=== PATIENT | male | born 1960 | race Caucasian/White ===

== ENCOUNTER 2017-02-06 19:12 | Emergency (ER) | payer BC | END 2017-02-06 21:00 | disposition home or self-care (01) | LOC: D.ER 19:12 | DX: G89.18 Other acute postprocedural pain (principal); L76.22 Postprocedural hemorrhage of skin and subcutaneous tissue following other procedure; F17.200 Nicotine dependence, unspecified, uncomplicated ==

== ENCOUNTER 2017-02-09 14:19 | Emergency (ER) | payer BC | END 2017-02-09 15:16 | disposition home or self-care (01) | LOC: D.ER 14:19 | DX: G89.18 Other acute postprocedural pain (principal); F17.200 Nicotine dependence, unspecified, uncomplicated ==

== ENCOUNTER 2017-02-22 00:57 | Emergency (ER) | payer BC | END 2017-02-22 02:04 | disposition home or self-care (01) | LOC: D.ER 00:57 | DX: M54.5 Low back pain (principal); M62.838 Other muscle spasm; F17.200 Nicotine dependence, unspecified, uncomplicated ==

== ENCOUNTER 2018-02-22 05:04 | Outpatient (CLI) | payer OTHER ==
[~2018-02-22] VITALS: Ht 167.6 cm; Wt 60.6 kg
--- NOTE | ~2018-02-22 | HEMODYNAMI ---
PATIENT:ANDREW SANCHES MEDICAL RECORD: [id number] : 60 LOCATION:D. D.2117 ADMISSION DATE: 02/22/18 Generatedon:02/22/201811:08 Patient name: ANDREW SANCHES Patient #: [id number] SSN: D OB: 1960 Date of study: 02/22/2018 Page: Of Hemodynamic Procedure Report Patient Data Patient Demographics Procedure consent was obtained First Name: ANDREW Gender: Male Last Name: MYRON : 1960 Middle Initial: ANNA MARIE Age: 57 year(s) Patient #: [id number] Race: Unknown Additional ID: [id number] Contact details [address]: [address] [place] [address] State: [place] City: [place] Zip code: [address] Past Medical History Allergies: No known allergies Admission Admission Data Admission Date: 02/22/2018 Admission Time: 6:39 Room #: 2117 Procedure Procedure Types Cath Procedure Diagnostic Procedure [facility] w/Coronaries PCI Procedure Coronary Stent Coronary Stent Initial Procedure Description Procedure Date Procedure Date: 02/22/2018 Procedure Start Time: 10:41 Procedure End Time: 11:07 Procedure Staff Name Function Sun Coker RT Monitor Marlene Buchanan RT Scrub Anatoly Goss RN Nurse Tex Garcia MD Performing Physician Cassius Damon RT Monitor Procedure Data Cath Procedure Fluoroscopy Diagnostic fluoroscopy Total fluoroscopy Time: 5.7 time: 5.7 min min Diagnostic fluoroscopy Total fluoroscopy dose: 839 dose: 839 mGy mGy Contrast Material Contrast Material Type Amount (ml) Isovue 300 121 Entry Location Entry Primary Successful Side Size Upsize Upsize Entry Closure Muse ccessful Closure Location (Fr) 1 (Fr) 2 (Fr) Remarks Device Remarks Radial Right 6 Fr Mechanical artery Short Compression Estimated blood loss: 10 ml Diagnostic catheters Device Type Used For End Catheter Placement DIAGNOSTIC Francisco 110cm Procedure 5Fr catheter ([id number]) DIAGNOSTIC Pigtail 5Fr Procedure catheter ([id number]) Procedure Medications Medication Administration Route Dosage Oxygen NC 2 l/min Heparin Flush Bag added to field 2 bags (1000units/500ml NS) 0.9% NaCl I.V. 100 ml/hr Radial Cocktail added to field 1 syringe (Verapomil 2mg/Nitro 400mcg/Heparin 1500units) Fentanyl I.V. 50 mcg Versed I.V. 1 mg Fentanyl I.V. 50 mcg Versed I.V. 1 mg Radial Cocktail I.A. 1 syringe (Verapomil 2mg/Nitro 400mcg/Heparin 1500units) Fentanyl I.V. 50 mcg Heparin Bolus I.V. 7000 units Brilinta P.O. 180 mg Hemodynamics Rest Heart Rate: 47 (bpm) Pressure Samples Time Site Value (mmHg) Purpose Heart Use Rate(bpm) 10:44 LV 127/-14,1 Snapshot 52 10:45 AO 83/47(63) Pullback 52 10:45 LV 123/-15,0 Pullback 52 Gradients Valve Time Site 1 Site 2 Mean SEP/DFP Peak To Heart Use (mmHg) (sec/min) Peak Rate (mmHg) (bpm) Aortic 10:45 LV AO 31 17 40 52 123/-15,0 83/47(63) Calculations Valve P-P Mean Valve Index Valve Source Name Gradient Area Flow (cm2) Aortic 40 31 40 31 Snapshots Pre Cath Intra NCS Post Cath Vital Signs Time Heart Resp SPO2 NIBP (mmHg) Rhythm Pain Sedation Rate (ipm) (%) Status Level (bpm) 10:26:24 47 17 98 137/79(94) NSR 0 (11) 10(A) , No pain 10:30:38 51 17 98 124/71(98) NSR 0 (11) 10(A) , No pain 10:34:46 56 15 98 127/71(100) NSR 0 (11) 10(A) , No pain 10:38:54 52 16 97 126/73(91) NSR 0 (11) 9(A) , No pain 10:43:01 49 17 99 112/66(84) NSR 0 (11) 9(A) , No pain 10:47:09 52 16 98 103/58(77) NSR 0 (11) 9(A) , No pain 10:51:13 51 17 98 115/60(86) NSR 0 (11) 9(A) , No pain 10:55:19 48 17 98 116/63(93) NSR 0 (11) 9(A) , No pain 10:59:27 51 17 98 112/61(87) NSR 0 (11) 9(A) , No pain 11:03:32 52 16 99 102/64(79) NSR 0 (11) 9(A) , No pain Medications Time Medication Route Dose Verified Delivered Reason Note s Effectiveness by by 10:26:58 Oxygen NC 2 l/min Tex Anatoly Per physician Jose Goss RN 10:27:09 Heparin Flush added 2 bags Tex Anatoly used for Bag to Jose Goss RN procedure (1000units/500ml field NS) 10:27:18 0.9% NaCl I.V. 100 Tex Anatoly Per physician ml/hr Jose Goss RN 10:27:26 Radial Cocktail added 1 Tex Anatoly used for (Verapomil to syringe Jose Goss RN procedure 2mg/Nitro field 400mcg/Heparin 1500units) 10:36:30 Fentanyl I.V. 50 mcg Tex Anatoly for sedation Jose Goss RN 10:36:36 Versed I.V. 1 mg Tex Anatoly for sedation Jose Goss RN 10:38:58 Fentanyl I.V. 50 mcg Tex Anatoly for sedation Jose Goss RN 10:39:03 Versed I.V. 1 mg Tex Anatoly for sedation Jose Goss RN 10:44:10 Radial Cocktail I.A. 1 Tex Tex for (Verapomil syringe Jose Garcia MD vasodilation 2mg/Nitro 400mcg/Heparin 1500units) 10:44:17 Fentanyl I.V. 50 mcg Tex Anatoly for sedation Jose Goss RN 10:53:54 Heparin Bolus I.V. 7000 Tex Anatoly for units Jose Goss RN anticoagulation 11:05:18 Brilinta P.O. 180 mg Tex Anatoly for Jose Goss RN antiplatelet therapy Procedure Log Time Note 10:18:59 Polo Romo RT(R) sent for patient. Start room use. 10:19:00 Time tracking: Regular hours 10:19:05 Plan of Care:Hemodynamics will remain stable., Cardiac rhythm will remain stable., Comfort level will be maintained., Respiratory function will remain adequate., Patient/ family verbilizes understanding of procedure., Procedure tolerated without complication., Recovers from procedure without complications.. 10:19:13 Patient received from Med II to CCL 2 Alert and oriented. Tansferred to table in Supine position. 10:19:15 Warm blankets applied, and ej hugger turned on for patient comfort. 10:19:15 Correct patient and procedure confirmed by team. 10:19:17 Signed procedure consent form obtained from patient. 10:19:18 ECG and BP/O2 sat monitors applied to patient. 10:25:16 Vital chart was started 10:26:08 Baseline sample Acquired. 10:26:12 Rhythm: sinus rhythm 10::18 Full Disclosure recording started 10:26:25 H&P Date Dictated: 02/21/2018 Within 30 days and on chart.. 10:26:26 Pre-procedure instructions explained to patient. 10:26:29 Family unavailable. 10:26:31 Patient NPO since Midnight. 10:26:36 Patient allergic to No known allergies 10:26:40 Is the patient allergic to Iodine/contrast media? No. 10:26:42 Was the patient premedicated? Yes 10:26:44 Is patient on blood thinner?No 10:26:46 Patient diabetic? No. 10:26:50 Snore? Yes 10:26:51 Sleep apnea? No 10:26:58 Oxygen 2 l/min NC was administered by Anatoly Goss RN; Per physician; 10:27:00 Patient pain scale 2/10 ?. 10:27:05 IV patent on arrival in left forearm with 0.9% NaCl at [facility]. 10:27:09 Heparin Flush Bag (1000units/500ml NS) 2 bags added to field was administered by Anatoly Goss RN; used for procedure; 10:27:11 Lab results completed and on chart. 10:27:16 Right Radial & Right Groin area was prepped with chlora-prep and draped in sterile fashion 10:27:17 Alarms reviewed by R. N. 10:27:18 0.9% NaCl 100 ml/hr I.V. was administered by Anatoly Goss RN; Per physician; 10::18 Sharps counted by scrub and verified by RAgnieszkaNAgnieszka 10:27:20 Physician paged 10:27:26 Radial Cocktail (Verapomil 2mg/Nitro 400mcg/Heparin 1500units) 1 syringe added to field was administered by Anatoly Goss RN; used for procedure; 10:36:14 Physician arrived 10:36:15 --------ALL STOP TIME OUT------ 10:36:15 Final Timeout: patient, procedure, and site verified with staff and physician. All members of the team are in agreement. 10:36:21 Right Radial & Right Groin site verified by team. 10:36:25 Physical assessment completed. ASA score P 2 - A patient with mild systemic disease as per Tex Garcia MD. 10:36:30 Fentanyl 50 mcg I.V. was administered by Anatoly Goss RN; for sedation; 10:36:30 Sedation plan: IV Moderate Sedation Medication:Versed, Fentanyl 10:36:36 Versed 1 mg I.V. was administered by Anatoly Goss RN; for sedation; 10:37:00 Use device set Radial Dx or PCI 10:37:03 ACIST Syringe (50037) opened to sterile field. 10:37:04 Medline Cath Pack ([id number]) opened to sterile field. 10:37:06 Bag Decanter (2002) opened to sterile field. 10:37:10 DIAGNOSTIC WIRE .035 260cm J wire (374857) opened to sterile field. 10:37:11 ACIST Hand Control (50954) opened to sterile field. 10:37:12 ACIST Manifold (99492) opened to sterile field. 10:37:13 Tegaderm 4 x 4 (1626W) opened to sterile field. 10:37:15 MBrace Wrist Support ([id number]) opened to sterile field. 10:38:16 SHEATH 6Fr Prelude Radial ([id number]) opened to sterile field. 10:38:58 Fentanyl 50 mcg I.V. was administered by Anatoly Goss RN; for sedation; 10:39:03 Versed 1 mg I.V. was administered by Anatoly Goss RN; for sedation; 10:39:28 Procedure started. 10:41:00 Local anesthetic to right radial artery with Lidocaine 2% by Tex Garcia MD.INITIAL ACCESS ONLY 10:42:56 A 6 Fr Short sheath was inserted into the Right Radial artery 10:43:27 A DIAGNOSTIC Francisco 110cm 5Fr catheter (892713) was advanced over the wire and used for Procedure. 10:43:36 Zero performed for pressure channel P1 10:43:40 Zero performed for pressure channel P1 10:43:42 Zero performed for pressure channel P1 10:44:10 Radial Cocktail (Verapomil 2mg/Nitro 400mcg/Heparin 1500units) 1 syringe I.A. was administered by Tex Garcia MD; for vasodilation; 10:44:17 Fentanyl 50 mcg I.V. was administered by Anatoly Goss RN; for sedation; 10:45:28 LV hemodynamics recorded. 10:45:31 LV gram done using MACHADO 10:45:37 EF : 50 % 10:46:51 LCA angiography performed. 10:48:12 RCA angiography performed. 10:49:08 Catheter removed. 10:49:09 A DIAGNOSTIC Pigtail 5Fr catheter (370507M) was advanced over the wire and used for Procedure. 10:50:10 Injector settings: Ml/sec: 10, Volume: 20, 10:50:19 Aortic Root visualized 10:50:44 Catheter removed. 10:51:23 GUIDE 6FR XBLAD 3.5 catheter ([id number]) opened to sterile field. 10:51:24 TUBING High Pressure Extension Tubing (Jose) ([id number]) opened to sterile field. 10:51:25 BMW 300cm [place] 2 J wire ([id number]) opened to sterile field. 10:51:27 INFLATOR Merit BasixCompak (NY3861) opened to sterile field. 10:51:33 Proceeding to intervention. 10:53:00 6 Fr XBLAD 3.5 guide catheter was inserted over the wire 10:53:54 Heparin Bolus 7000 units I.V. was administered by Anatoly Goss RN; for anticoagulation; 10:55:09 BMW wire advanced. 10:55:36 Wire advanced across lesion. 10:58:36 Place stent Inflation Number: 1 A INTEGRITY OTW 3.0 X 18 stent ([id number]) was prepped and advanced across the Prox LAD. The stent was deployed at 14 BRYCE for 0:16 (min:sec). 10:59:17 Stent catheter was removed intact over wire. 10:59:18 Wire removed. 10:59:19 Guide catheter removed. 10:59:52 TR BAND Standard ([id number]) opened to sterile field. 11:03:31 Sheath removed intact; hemostasis achieved with Mechanical Compression to the Right Radial artery. 11:03:34 Procedure ended.(Physican Out) 11:03:45 Fluoroscopy time 05.70 minutes. 11:03:54 Fluoroscopy dose: 839 mGy 11:03:54 Flurop Dose total: 839 11:03:59 Contrast amount:Isovue 300 121ml. 11:04:01 Sharps counted by scrub and verified by R.N. 11:04:04 TR band inflated with 10cc of air. 11:04:06 Insertion/operative site no bleeding no hematoma. 11:04:13 Post right radial artery:stable 11:04:21 Post-procedure physical assessment completed. ASA score P 2 - A patient with mild systemic disease as per Tex Garcia MD. 11:04:33 Post procedure rhythm: sinus bradycardia 11:04:36 Estimated blood loss: 10 ml 11:04:38 Post procedure instruction explained to patient.Patient verbalizes understanding. 11:04:38 Patient needs reinforcement of post procedure teaching. 11:04:58 Procedure type changed to Cath procedure, Diagnostic procedure, LHC, LHC w/Coronaries, PCI procedure, Coronary Stent, Coronary Stent Initial 11:05:18 Brilinta 180 mg P.O. was administered by Anatoly Goss RN; for antiplatelet therapy; 11:05:24 Procedure and supply charges have been captured, reviewed, submitted and are correct. 11:05:26 Vital chart was stopped 11:05:27 See physician's report for complete and final results. 11:07:24 Report given to Med II. 11:07:31 Patient transfered to [facility] II with Bed. 11:07:34 Procedure ended. 11:07:34 Full Disclosure recording stopped 11:07:39 End room use (Document Last) Intervention Summary Intervention Notes Time ActionType Lesion and Equipment Action# Pressure Duration Attributes Used 10:58:36 Place stent Prox LAD INTEGRITY 1 14 00:16 OTW 3.0 X 18 stent ([id number]) Device Usage Item Name Manufacture Quantity Catalog Number Hospital Part Current M inimal Lot# / Charge Number Stock Stock Serial# Code ACIST Syringe Acist 1 39707 417409 998432 112325 2 0 (53244) Medical Systems Inc Medline Cath Cardinal 1 [id number] 641248 40492 430738 5 Pack Health ([id number]) Bag Decanter Microtek 1 2001S 520063 54496 813392 5 (2001S) Medical Inc. DIAGNOSTIC WIRE [place] 1 381846 410257 662919 712509 3 0 .035 260cm J wire (829401) ACIST Hand Acist 1 53977 835321 545194 065733 5 Control (97583) Medical Systems Inc ACIST Manifold Acist 1 06923 826946 315763 649172 5 (14684) Medical Systems Inc Tegaderm 4 x 4 3M 1 1626W 932537 863167 441973 5 (1626W) MBrace Wrist Advanced 1 140-0250-00 401633 61635 458739 5 Support Vascular (159565728) Dynamics SHEATH 6Fr Merit 1 [id number] 420942 804780 771492 5 Prelude Radial Medical ([id number]) DIAGNOSTIC Terumo 1 405023 370478 412309 129180 5 Francisco 110cm 5Fr catheter (733470) DIAGNOSTIC Cardinal 1 [id number] 572585 786434 738780 5 Pigtail 5Fr Health catheter (508406V) GUIDE 6FR XBLAD Cardinal 1 [id number] 136801 432378 765869 1 0 3.5 catheter Health (12042235) TUBING High Merit 1 ON0025S 384251 64156 371251 1 0 Pressure Medical Extension Tubing (Garcia) (EE7488P) BMW 300cm Dawson 1 [id number] 503632 830111 288813 5 [place] 2 J Vascular wire (7413820Q) INFLATOR Merit Merit 1 HV4676 392151 223448 784246 1 5 avolution Medical (PA7374) INTEGRITY OTW Medtronic 1 [id number] 650686 040343 3 [id number] 3.0 X 18 stent ([id number]) TR BAND Terumo 1 [id number] 246563 343947 828640 4 0 Standard (NEM28TBA) Signature Audit Post Stage Time Signature Unsigned Intra-Procedure 02/22/2018 Cassius Damon 11:08:23 AM RT(R) (CV) Signatures Monitor : Sun Coker Signature : RT Date : Time : Monitor : Cassius Damon RT Signature : Date : Time : [place] [address] [place] [address]
[2018-02-22 05:37] LABS: BASOPHILS 0.3 % (0-2); EOSINOPHILS 1.6 % (0-7); HEMATOCRIT 40.2 % (42.0-54.0); LYMPHOCYTES 27.9 % (15-50); MCH 30.2 pg (26.0-34.0); MCHC 34.8 g/dL (31.0-37.0); MCV 86.6 fL (80.0-100.0); MEAN PLATELET VOLUME 10.2 fL (7.4-10.4); MONOCYTES 7.9 % (2-11); NEUTROPHILS 62.3 % (40-80); PLATELET COUNT 209 10x3/uL (130-400); RBC 4.64 10x6/uL (4.20-6.10); RDW 13.7 % (11.5-14.5); WBC 7.6 10x3/uL (4.8-10.8)
[2018-02-22 05:50] LABS: ALBUMIN 3.3 g/dL (3.4-5.0); ALKALINE PHOSPHATASE 92 U/L (46-116); ALT (SGPT) 22 U/L (10-68); BILIRUBIN - TOTAL 0.21 mg/dL (0.2-1.3); CALC OSMOLALITY 281 mosm/kg (275-300); CALCIUM 8.6 mg/dL (8.5-10.1); CARBON DIOXIDE 26.2 mmol/L (21.0-32.0); CHLORIDE - SERUM 106 mmol/L (98-107); CREATININE - SERUM 0.7 mg/dL (0.6-1.3); GLUCOSE 95 mg/dL (74-106); POTASSIUM - SERUM 3.2 mmol/L (3.5-5.1); PROTEIN - SERUM 6.7 g/dL (6.4-8.2); SODIUM 142 mmol/L (136-145); UREA NITROGEN 10 mg/dL (7-18); eGFR NON AFRICAN AMERICAN > 90 mL/min (90-120)
[2018-02-22 06:01] LABS: CREATINE KINASE 113 UL (21-232); MAGNESIUM - SERUM 1.8 mg/dL (1.8-2.4); PRO BNP 48 pg/mL (0-125)
[2018-02-22 06:02] LABS: TROPONIN-I < 0.017 ng/mL (0.000-0.060)
[2018-02-22 07:41] VITALS: BP 122/75; BMI 24.2
[2018-02-22 08:24] VITALS: BP 111/68
[2018-02-22 13:42] VITALS: Ht 167.6 cm; Wt 60.6 kg
[2018-02-22 15:07] VITALS: BP 95/63
[2018-02-22 20:00] VITALS: BP 89/50
[2018-02-23 00:49] VITALS: BP 107/60
[2018-02-23 06:46] VITALS: BP 103/63
[2018-02-23 07:44] VITALS: BP 101/55
[2018-02-23] MEDS ORDERED: NICODERM C1 PATCH .1 TRANSDERM (10:34)
[2018-02-23] MEDS ORDERED: BRILINTA90 MG PO (10:34)
[2018-02-23] MEDS ORDERED: PROTONIX40 MG PO (10:35)
[2018-02-23 11:23] VITALS: BP 94/51
== END 2018-02-23 14:30 | disposition home or self-care (01) ==
LOC: OBSVTIME → D.ER 05:04 → OBSVTIME 06:39 → D.ER 06:39 → D.M2 06:39 → EDSTATUS 11:00 → D.ER 02-23 14:30 → D.M2 02-23 14:30
PROVIDERS: Emergency Medicine
DX: I20.0 Unstable angina (principal); F17.203 Nicotine dependence unspecified, with withdrawal; E87.6 Hypokalemia; Z01.812 Encounter for preprocedural laboratory examination

== ENCOUNTER 2018-10-04 09:02 | Emergency (ER) | payer OTHER ==
[~2018-10-04] VITALS: Ht 167.6 cm; Wt 68.2 kg
[~2018-10-04 09:02] MED LIST: BRILINTA90 MG PO; NICODERM C1 PATCH .1 TRANSDERM; PROTONIX40 MG PO
[2018-10-04 09:06] VITALS: Ht 167.6 cm; Wt 68.2 kg
[2018-10-04] MEDS ORDERED: NORCO 7.5/325 T1 TA1 PO (09:23)
[2018-10-04 10:06] VITALS: BP 124/68
== END 2018-10-04 10:13 | disposition home or self-care (01) ==
LOC: D.ER 09:02
DX: M25.511 Pain in right shoulder (principal); G40.909 Epilepsy, unspecified, not intractable, without status epilepticus

== ENCOUNTER 2019-02-20 22:56 | Inpatient (IN) | payer OTHER ==
[~2019-02-20] VITALS: Ht 167.6 cm; Wt 65.9 kg
[~2019-02-20 22:56] MED LIST changes: +NORCO 7.5/325 T1 TA1 PO
--- NOTE | 2019-02-20 23:15 | NUR ---
PT PROVIDED WARM BLANKETS FOR COMFORT.
[2019-02-20 23:22] LABS: APPEARANCE CLEAR (CLEAR); BILIRUBIN NEGATIVE (NEGATIVE); COLOR YELLOW (YELLOW); GLUCOSE NEGATIVE (NEGATIVE); KETONE NEGATIVE (NEGATIVE); NITRITE NEGATIVE (NEGATIVE); PROTEIN NEGATIVE (NEGATIVE); UROBILINOGEN NORMAL (NORMAL)
[2019-02-20 23:30] VITALS: BP 113/61
[2019-02-21] VITALS (9 sets, daily range): BP systolic 91–137; BP diastolic 41–77; Ht 167.6 cm; Wt 65.9 kg
[2019-02-21 00:04] LABS: BASOPHILS 0.4 % (0-2); EOSINOPHILS 2.6 % (0-7); HEMATOCRIT 39.9 % (42.0-54.0); HEMOGLOBIN 13.8 g/dL (13.5-17.5); IMMATURE GRANULOCYTES 0.1 % (0-5); LYMPHOCYTES 29.8 % (15-50); MCHC 34.6 g/dL (31.0-37.0); MCV 86.7 fL (80.0-100.0); MEAN PLATELET VOLUME 10.1 fL (7.4-10.4); MONOCYTES 6.8 % (2-11); NEUTROPHILS 60.3 % (40-80); PLATELET COUNT 214 10x3/uL (130-400); RDW 14.1 % (11.5-14.5); WBC 6.9 10x3/uL (4.8-10.8)
[2019-02-21 00:16] LABS: ALBUMIN 3.1 g/dL (3.4-5.0); ALKALINE PHOSPHATASE 86 U/L (46-116); ALT (SGPT) 24 U/L (10-68); BILIRUBIN - TOTAL 0.22 mg/dL (0.2-1.3); CALC OSMOLALITY 279 mosm/kg (275-300); CARBON DIOXIDE 28.1 mmol/L (21.0-32.0); CHLORIDE - SERUM 104 mmol/L (98-107); CREATININE - SERUM 0.8 mg/dL (0.6-1.3); GLUCOSE 94 mg/dL (74-106); POTASSIUM - SERUM 3.7 mmol/L (3.5-5.1); PROTEIN - SERUM 6.3 g/dL (6.4-8.2); SODIUM 141 mmol/L (136-145); UREA NITROGEN 11 mg/dL (7-18); eGFR NON AFRICAN AMERICAN > 90 mL/min (90-120)
--- NOTE | 2019-02-21 00:38 | NUR ---
PT RETURNED FROM CT VIA STRETCHER. PT DENIES NEEDS AT THIS TIME.
--- NOTE | 2019-02-21 01:30 | NUR ---
PT UPDATED ON PLAN OF CARE. NO S/S OF ACUTE DISTRESS NOTED AT THIS TIME. PT FAMILY AT BEDSIDE.
--- NOTE | 2019-02-21 03:19 | NUR ---
RN DISCUSSED BENEFITS OF NG TUBE PLACEMENT DUE TO SBO, PT REFUSES NG TUBE.
--- NOTE | 2019-02-21 04:00 | NUR ---
RECEIVED PT VIA W/C FROM ER WITH C/O LOWER ABD PAIN. REPORTS LAST BM 2 DAYS AGO. REFUSES NGT PLACEMENT. PT ASKING FOR FOOD. INFORMED THAT HE IS NPO. HE VERBALIZED UNDERSTANDING. ALERT AND ORIENTED X4. RESP EVEN AND NONLABORED. BBS CTA. ABD SOFT, TENDER IN LOWER QUADS. REPORTS PAIN 6. NO N/V. ENTIRE BODY IS COVERED IN RAISED MOLES. NS @ 125 ML/HR INFUSING IN LT AC WITHOUT DIFF. AMBULATORY. NO EDEMA NOTED. NO ACUTE DISTRESS. SR ELEVATED X2. CL IN REACH.
--- NOTE | 2019-02-21 07:08 | NUR ---
PT IS RESTING IN BED WITH EYES CLOSED. RESPIRATIONS ARE EVEN AND UNLABORED. PT IS EASILY AROUSED WITH VERBAL STIMULATION. PT REPORTS PAIN IN LOWER ABDOMEN 8/10 DESCRIBED CRAMPING. PT EDUCATED ON NPO STATUS. PT VERBALIZES UNDERSTANDING. BED IS IN THE LOWEST POSITION. CALL LIGHT AND BEDSIDE TABLE ARE WITHIN REACH. WILL ADDRESS PAIN. WILL CONT TO MONITOR.
--- NOTE | 2019-02-21 07:12 | NUR ---
PT IS REFUSING PAIN MEDICATION. PT EDUCATED ON AVAILABILITY AND TYPE OF MEDICAITON, PT STATES "I DON'T WANT IT. I WILL JUST SUFFER". WILL CONT TO MONITOR.
--- NOTE | 2019-02-21 11:00 | NUR ---
PT REPORTS LARGE SIZE BOWEL MOVEMENT.
[2019-02-21 11:57] LABS: BASOPHILS 0.3 % (0-2); EOSINOPHILS 3.9 % (0-7); HEMATOCRIT 40.4 % (42.0-54.0); IMMATURE GRANULOCYTES 0.2 % (0-5); LYMPHOCYTES 33.1 % (15-50); MCHC 34.7 g/dL (31.0-37.0); MCV 86.5 fL (80.0-100.0); MEAN PLATELET VOLUME 10.2 fL (7.4-10.4); MONOCYTES 9.3 % (2-11); NEUTROPHILS 53.2 % (40-80); PLATELET COUNT 230 10x3/uL (130-400); RBC 4.67 10x6/uL (4.20-6.10); RDW 14.1 % (11.5-14.5); WBC 6.4 10x3/uL (4.8-10.8)
[2019-02-21 12:12] LABS: CALC OSMOLALITY 278 mosm/kg (275-300); CALCIUM 8.1 mg/dL (8.5-10.1); CARBON DIOXIDE 26.2 mmol/L (21.0-32.0); CHLORIDE - SERUM 107 mmol/L (98-107); CREATININE - SERUM 0.8 mg/dL (0.6-1.3); GLUCOSE 92 mg/dL (74-106); POTASSIUM - SERUM 3.8 mmol/L (3.5-5.1); SODIUM 140 mmol/L (136-145); UREA NITROGEN 12 mg/dL (7-18); eGFR NON AFRICAN AMERICAN > 90 mL/min (90-120)
--- NOTE | 2019-02-21 21:48 | NUR ---
PT ALERT X 4. BREATH SOUNDS CLEAR BILAT. IV TO LEFT AC, PATENT, DRESSING CLEAN DRY AND INTACT. PT REPORTING NO PAIN AT THIS TIME. BED LOW, CALL LIGHT IN REACH. NO OTHER NEEDS AT THIS TIME.
--- NOTE | 2019-02-22 01:36 | NUR ---
PT REQUESTING ICE CREAM AND ICE WATER. SITTING UP IN BED.
[2019-02-22 04:00] VITALS: BP 121/64
[2019-02-22 06:14] LABS: BASOPHILS 0.5 % (0-2); EOSINOPHILS 3.1 % (0-7); HEMATOCRIT 40.5 % (42.0-54.0); HEMOGLOBIN 13.5 g/dL (13.5-17.5); IMMATURE GRANULOCYTES 0.2 % (0-5); MCH 29.3 pg (26.0-34.0); MCHC 33.3 g/dL (31.0-37.0); MEAN PLATELET VOLUME 10.9 fL (7.4-10.4); MONOCYTES 8.5 % (2-11); NEUTROPHILS 54.7 % (40-80); PLATELET COUNT 240 10x3/uL (130-400); RDW 14.1 % (11.5-14.5); WBC 6.1 10x3/uL (4.8-10.8)
[2019-02-22 07:19] LABS: CALC OSMOLALITY 279 mosm/kg (275-300); CALCIUM 7.9 mg/dL (8.5-10.1); CHLORIDE - SERUM 110 mmol/L (98-107); CREATININE - SERUM 0.7 mg/dL (0.6-1.3); GLUCOSE 73 mg/dL (74-106); POTASSIUM - SERUM 3.8 mmol/L (3.5-5.1); SODIUM 142 mmol/L (136-145); eGFR NON AFRICAN AMERICAN > 90 mL/min (90-120)
[2019-02-22 07:20] LABS: UREA NITROGEN 8 mg/dL (7-18)
--- NOTE | 2019-02-22 08:00 | NUR ---
PT RESTING IN BED. NO ACUTE DISTRESS NOTED AT THIS TIME. RESP EVEN AND UNLABORED. REPORTS "LIQUID STOOL" THIS AM. QUESTIONS WHEN WILL BE DISCHARGED HOME. INSTRUCTED PT NO ORDERS FOR D/C AT THIS TIME. DENIES PAIN AT THIS TIME. IV TO LEFT AC WITH NS @ 125ML/HR INFUSING VIA PUMP. SITE WITHOUT REDNESS OR EDEMA. DENIES FURTHER NEEDS AT THIS TIME. CL WITHIN REACH. ENCOURAGED TO CALL WITH NEEDS. CONTINUE POC
[2019-02-22 08:27] VITALS: BP 129/67
[2019-02-22] MEDS ORDERED: MIRALAX17 GM PO (10:53)
--- NOTE | 2019-02-22 12:00 | NUR ---
PT IV D/C'D FROM LEFT AC FOR DISCHARGE HOME. CATH INTACT. DISCHARGE INSTRUCTIONS GIVEN WITH FOLLOW UP APPOINTMENT WITH DR. BLACKMAN. DENIES FURTHER QUESTIONS AT THIS TIME. TAKEN OUT WITH ALL PERSONAL POSESSIONS VIA W/C TO PRIVATE VEHICLE.
--- NOTE | 2019-02-22 13:13 | EC ---
PATIENT:ANDREW SANCHES DATE OF SERVICE: 02/21/19 SEX: M MEDICAL RECORD: [id number] DATE OF : 60 LOCATION:D.[facility] [place] AGE OF PATIENT: 58 ADMISSION DATE: 02/21/19 REFERRING PHYSICIAN: INTERPRETING PHYSICIAN: STELLA RUBALCAVA MD ECHOCARDIOGRAM REPORT ECHO CHARGES 4 ECHO COMPLETE Date: 02/21/19 CLINICAL DIAGNOSIS: ECHOCARDIOGRAPHIC MEASUREMENTS (adult normal given) AC root (d.<3.7cm) 2.2 cm LV Septum d (<1.2 cm> 1.1 cm Valve Excursion 1.2 cm LV Septum (systole) 1.3 cm Left Atria (s.<4.0cm> 3.6 cm LVPW d(<1.2cm) 0.7 cm RV (d.<2.3cm) 3.4 cm LVPW (sytole) 1.0 cm LV diastole(<5.6CM) 5.3 cm MV E-F(>70mm/sec) cm LV systole 4.9 cm LVOT Diameter 1.8 cm MV exc.(>10mm) cm Est.ejection fraction (50-75%) % DOPPLER: LVIT cm/sec A 80 cm/sec E 93 cm/sec LA cm/sec RVSP 22.9 mmHg LVOT 111 cm/sec AOP1/2T m/s Asc. Ao 360 cm/sec RVOT 80 cm/sec RA cm/sec PA 121 cm/sec AV Gradient Peak 51.8 mmHg AV Mean 36.6 mmHg AV Area 0.9 cm MV Gradient Peak 3.4 mmHg MV Mean 1.3 mmHg MV Area cm COMMENTS: Slackman: Radha CRAMER GRATZ Faculty Dean: 3 Dr. Cabral TAPE# PACS Pericardial Effusion N DATE OF SERVICE: 02/21/2019 Adequate 2-D, color-flow and spectral Doppler, and M-mode. Borderline LVH. LV internal dimension is normal. Wall motion is normal. EF is greater than or equal to 55%. Aortic valve is calcified with restriction of leaflet motion with peak gradient of 51 mmHg, putting this in moderate range. Difficult to fully exclude aortic valve vegetation due to underlying calcifications. Left atrium is normal. Mitral valve shows no prolapse. Trace MR. Right-sided chambers are grossly normal. Trace TR. ECHOCARDIOGRAM REPORT [id number] ANDREW SANCHES TRANSINT:[id number] Voice Confirmation ID: [id number] DOCUMENT ID: [id number] STELLA RUBALCAVA MD at 1313 CC: [id number] DICTATION DATE: 02/21/19 1218 SHOPPING CENTRE MANAGER: 02/21/19 1356 DIS IN 02/22/19 [place] [id number] [place] [id number]
== END 2019-02-22 12:08 | disposition home or self-care (01) | DRG 389 ==
LOC: D.ER 22:56 → D.MS 02-21 02:27
PROVIDERS: Family Medicine; Internal Medicine Nephrology; ADMIT Family Medicine; ATTEND Family Medicine
DX: K56.609 Unspecified intestinal obstruction, unspecified as to partial versus complete obstruction (principal); F17.203 Nicotine dependence unspecified, with withdrawal; R00.1 Bradycardia, unspecified; I25.10 Atherosclerotic heart disease of native coronary artery without angina pectoris; K21.9 Gastro-esophageal reflux disease without esophagitis

== ENCOUNTER 2019-06-22 01:54 | Emergency (ER) | payer OTHER ==
[~2019-06-22] VITALS: Ht 167.6 cm; Wt 70.5 kg
[~2019-06-22 01:54] MED LIST changes: +MIRALAX17 GM PO
[2019-06-22 01:57] VITALS: Ht 167.6 cm; Wt 70.5 kg
[2019-06-22 03:17] VITALS: BP 141/83
== END 2019-06-22 03:18 | disposition home or self-care (01) ==
LOC: D.ER 01:54
DX: S40.011A Contusion of right shoulder, initial encounter (principal); W20.8XXA Other cause of strike by thrown, projected or falling object, initial encounter; Y93.89 Activity, other specified; Y92.89 Other specified places as the place of occurrence of the external cause

== ENCOUNTER 2020-06-19 07:10 | Outpatient (CLI) | payer OTHER ==
[~2020-06-19] VITALS: Ht 167.6 cm; Wt 67.3 kg
--- NOTE | ~2020-06-19 | HEMODYNAMI ---
PATIENT:ANDREW SANCHES MEDICAL RECORD: [id number] : 60 LOCATION:[facility] ADMISSION DATE: 06/19/20 Generatedon:06/19/202010:56 Patient name: ANDREW SANCHES Patient #: [id number] SSN: [id number] : 1960 Date of study: 06/19/2020 Page: Of Hemodynamic Procedure Report Patient Data Patient Demographics Procedure consent was obtained First Name: ANDREW Gender: Male Last Name: MYRON : 1960 Middle Initial: ANNA MARIE Age: 59 year(s) Patient #: [id number] Race: SSN: [id number] Additional ID: [id number] Contact details [address]: [address] [place] [address] State: [place] City: [place] Zip code: [address] Past Medical History Allergies: No known allergies Admission Admission Data Admission Date: 06/19/2020 Admission Time: 7:10 Arrival Date: 06/19/2020 Arrival Time: 0:00 Insurance Payor: Private health insurance Height (in.): 66.14 BSA: 1.76 (m2) Height (cm.): 168 BMI: 23.74 (kg/m2) Weight (lbs.): 147.71 Weight (kg.): 67 Lab Results Lab Result Date: 06/19/2020 Lab Result Time: 0:00 Biochemistry Name Units Result Min Max BUN mg/dl 14 --(--*-)-- 7 18 Creatinine mg/dl 0.9 --(-*--)-- 0.6 1.3 eGFR ml/min 90 --(*---)-- 90 120 NONAFRICAN CBC Name Units Result Min Max Hematocrit % 45.6 --(-*--)-- 42 54 Hemoglobin g/dl 15.2 --(-*--)-- 13.5 17.5 Procedure Procedure Types Cath Procedure Diagnostic Procedure C Coronaries only Sedation Charges Moderate Sedation up to 15 minutes Procedure Description Procedure Date Procedure Date: 06/19/2020 Procedure Start Time: 10:41 Procedure End Time: 10:54 Procedure Staff Name Function Tex Garcia MD Performing Physician Marlene Buchanan RT Monitor Lillian Freitas RN Nurse Denise Berman RT Scrub Leslee Shepherd RN Sales Product Specialist Indication Dyspnea Procedure Data Cath Procedure Fluoroscopy Diagnostic fluoroscopy Total fluoroscopy Time: 2.3 time: 2.3 min min Diagnostic fluoroscopy Total fluoroscopy dose: 499 dose: 499 mGy mGy Contrast Material Contrast Material Type Amount (ml) Isovue 300 62 Entry Location Entry Primary Successful Side Size Upsize Upsize Entry Closure Muse ccessful Closure Location (Fr) 1 (Fr) 2 (Fr) Remarks Device Remarks Radial Right 6 Fr Mechanical artery Short Compression Estimated blood loss: 5 ml Diagnostic catheters Device Type Used For End Catheter Placement DIAGNOSTIC Francisco 110cm Ventriculography 5Fr catheter ([id number]) DIAGNOSTIC Pigtail 5Fr Aortic Root catheter ([id number]) Angiography Procedure Complications No complications Procedure Medications Medication Administration Route Dosage Oxygen etCO2 Nasal cannula 2 l/min Lidocaine 2% added to field 20 Heparin Flush Bag added to field 2 bags (1000units/500ml NS) 0.9% NaCl I.V. 100 ml/hr Versed I.V. 2 mg Fentanyl I.V. 50 mcg Versed I.V. 1 mg Fentanyl I.V. 50 mcg Versed I.V. 1 mg Radial Cocktail I.A. 1 syringe (Verapamil 2mg/Nitro 400mcg/Heparin 1500units) Hemodynamics Rest BSA: 1.76 (m2) HGB: 15.2 (g/dl) O2 Consumption: Estimated: 193.09 (ml/min) O2 Co nsumption indexed: Estimated:109.71 (ml/min/m) Heart Rate: 49 (bpm) Snapshots Pre Cath Intra NCS Post Cath Vital Signs Time Heart Resp SPO2 etCO2 NIBP (mmHg) Rhythm Pain Sedation Rate (ipm) (%) (mmHg) Status Level (bpm) 10:21:42 48 18 99 0 122/69(100) NSR 0 (11) 10(A) , No pain 10:25:25 49 15 99 33.8 119/67(94) NSR 0 (11) 10(A) , No pain 10:34:06 48 14 98 27.7 113/68(94) NSR 0 (11) 10(A) , No pain 10:39:27 48 16 98 20.3 Disturbed NSR 0 (11) 10(A) , No pain 10:43:14 50 16 97 28.5 114/64(82) NSR 0 (11) 9(A) , No pain 10:47:06 50 15 96 7.5 101/52(68) NSR 0 (11) 9(A) , No pain 10:50:59 48 16 95 0 85/46(64) NSR 0 (11) 9(A) , No pain 10:53:41 44 14 96 35.3 104/41(69) NSR 0 (11) 10(A) , No pain Medications Time Medication Route Dose Verified Delivered Reason Notes Effectiveness by by 10:28:09 Oxygen etCO2 2 l/min Tex Buffie used for Nasal Jose Shepherd RN procedure cannula 10:28:29 Lidocaine 2% added 20ml Tex Tex for local to vial Jose Garcia MD anesthetic field 10:28:35 Heparin Flush added 2 bags Tex Tex used for Bag to Jose Garcia MD procedure (1000units/500ml field NS) 10:28:47 0.9% NaCl I.V. 100 Tex Buffie used for ml/hr Jose Shepherd RN procedure 10:30:16 Versed I.V. 2 mg Tex Buffie for sedation Jose Shpeherd RN 10:30:22 Fentanyl I.V. 50 mcg Tex Buffie for sedation Jose Shepherd RN 10:42:37 Versed I.V. 1 mg Tex Buffie for sedation Jose Shepherd RN 10:42:41 Fentanyl I.V. 50 mcg Tex Buffie for sedation Jose Shepherd RN 10:43:03 Radial Cocktail I.A. 1 Tex Tex for (Verapamil syringe Jose Garcia MD vasodilation 2mg/Nitro 400mcg/Heparin 1500units) 10:46:26 Versed I.V. 1 mg Tex Buffie for sedation Jose Shepherd RN Procedure Log Time Note 9:19:37 Informed consent obtained and on chart 9:21:03 Indication : Dyspnea 9:21:15 Time tracking: Regular hours (M-F 7:00 - 5:00) 9:21:22 Procedure Status Elective Heart Cath (OP). 9:42:23 Lab Result : BUN 14 mg/dl 9::23 Lab Result : Hemoglobin 15.2 g/dl 9:: Lab Result : Hematocrit 45.6 % 9:42:23 Lab Result : Creatinine 0.9 mg/dl 9:42:23 Lab Result : eGFR NONAFRICAN 90 ml/min 9:42:46 Patient Height : 66.14 inches 9:42:52 Patient Weight : 147.71 lbs 9:42:57 Arrival Date: 06/19/2020 12:00:00 AM 9:44:17 Insurance Payor : Private health insurance 9:48:45 Risk of Mortality: 0.1 9:48:49 Risk of blood transfusion: 0.1 9:48:53 Risk of SAMARA: 0.6 10:20:01 Denise Berman RT(R) (CV) sent for patient. Start room use. 10:20:29 Plan of Care:Hemodynamics will remain stable., Cardiac rhythm will remain stable., Comfort level will be maintained., Respiratory function will remain adequate., Patient/ family verbilizes understanding of procedure., Procedure tolerated without complication., Recovers from procedure without complications.. 10:20:37 Patient received from Pre/Post Procedure Room to CCL 2 Alert and oriented. Tansferred to table in Supine position. 10:20:39 Warm blankets applied, and ej hugger turned on for patient comfort. 10:20:39 Correct patient and procedure confirmed by team. 10:20:41 ECG and BP/O2 sat monitors applied to patient. 10:20:42 Vital chart was started 10:20:47 Baseline sample Acquired. 10:21:12 Rhythm: sinus rhythm 10:21:14 Full Disclosure recording started 10:28:09 Oxygen 2 l/min etCO2 Nasal cannula was administered by Leslee Shepherd RN; used for procedure; Verbal order read back and verified. 10:28:20 H&P Date Dictated: 06/11/2020 Within 30 days and on chart., H&P Addendum completed by physician on day of procedure. (MUST COMPLETE FOR ALL OUTPATIENTS). 10:28:22 Pre-procedure instructions explained to patient. 10:28:25 Family in waiting room. 10:28:27 Patient NPO since Midnight. 10:28:29 Lidocaine 2% 20ml vial added to field was administered by Tex Garcia MD; for local anesthetic; Verbal order read back and verified. 10:28:34 Patient allergic to No known allergies 10:28:35 Heparin Flush Bag (1000units/500ml NS) 2 bags added to field was administered by Tex Garcia MD; used for procedure; Verbal order read back and verified. 10:28:38 Is the patient allergic to Iodine/contrast media? No. 10:28:40 Was the patient premedicated? Yes 10:28:41 Is patient on blood thinner?No 10:28:43 Patient diabetic? No. 10:28:47 0.9% NaCl 100 ml/hr I.V. was administered by Leslee Shepherd RN; used for procedure; Verbal order read back and verified. 10::47 Snore? No 10::48 Sleep apnea? No 10::54 Dentures? No ? 10:29:02 Patient pain scale 4/10 ?. 10:29:10 IV patent on arrival in right forearm with 0.9% NaCl at [facility]. 10:29:13 Lab results completed and on chart. 10:29:36 Stress Test: no; N/A ? 10:29:50 Right Radial & Right Groin area was prepped with chlora-prep and draped in sterile fashion 10::51 Alarms reviewed by R. N. 10::52 Sharps counted by scrub and verified by R.N. 10:29:53 Physician paged 10:29:55 Physician arrived 10:29:56 --------ALL STOP TIME OUT------ 10::57 Final Timeout: patient, procedure, and site verified with staff and physician. All members of the team are in agreement. 10:30:16 Versed 2 mg I.V. was administered by Leslee Shepherd RN; for sedation; Verbal order read back and verified. 10:30:22 Fentanyl 50 mcg I.V. was administered by Leslee Shepherd RN; for sedation; Verbal order read back and verified. 10:33:07 Zero performed for pressure channel P1 10:34:14 Right Radial & Right Groin site verified by team. 10:34:17 Fire Safety Assessment: A--An alcohol-based skin anteseptic being used preoperatively., C--Open oxygen or nitrous oxide is being used., D--An ESU, laser, or fiber-optic light is being used. 10:34:23 Physical assessment completed. ASA score P 2 - A patient with mild systemic disease as per Tex Garcia MD. 10:34:30 1) 90+ Normal kidney functon but urine findings or structural abnormalities or genetic trait point to kidney disease. 10:34:34 Maximum allowable contrast dose (3.7 X eGFR X 0.75)250 ml. 10:34:38 Sedation plan: IV Moderate Sedation Medication:Versed, Fentanyl 10:34:45 Use device set Radial Dx or PCI 10:34:46 ACIST Syringe (53569) opened to sterile field. 10:34:46 Medline Cath Pack ([id number]) opened to sterile field. 10:34:47 Bag Decanter (2002S) opened to sterile field. 10:34:47 ACIST Hand Control (62753) opened to sterile field. 10:34:48 ACIST Manifold (44877) opened to sterile field. 10:34:50 MBrace Wrist Support ([id number]) opened to sterile field. 10:34:53 EMERALD Guide Wire (440-050) opened to sterile field. 10:34:54 SHEATH 6FR RAIN (2000773) opened to sterile field. 10:36:58 Zero performed for pressure channel P1 10:39:27 Procedure started. 10:41:14 Local anesthetic to right radial artery with Lidocaine 2% by Tex Garcia MD.INITIAL ACCESS ONLY 10:41:25 A 6 Fr Short sheath was inserted into the Right Radial artery 10:42:25 NEEDLE Cook 21G 4cm Radial ([id number]) opened to sterile field. 10:42:37 Versed 1 mg I.V. was administered by Leslee Shepherd RN; for sedation; Verbal order read back and verified. 10:42:41 Fentanyl 50 mcg I.V. was administered by Leslee Shepherd RN; for sedation; Verbal order read back and verified. 10:43:03 Radial Cocktail (Verapamil 2mg/Nitro 400mcg/Heparin 1500units) 1 syringe I.A. was administered by Tex Garcia MD; for vasodilation; Verbal order read back and verified. 10:44:09 A DIAGNOSTIC Francisco 110cm 5Fr catheter (930125) was advanced over the wire and used for Ventriculography. 10:46:24 LCA angiography performed. 10:46:26 Versed 1 mg I.V. was administered by Leslee Shepherd RN; for sedation; Verbal order read back and verified. 10:47:11 RCA angiography performed. 10:48:08 Catheter removed. 10:48:46 A DIAGNOSTIC Pigtail 5Fr catheter ([id number]) was advanced over the wire and used for Aortic Root Angiography. 10:48:57 ZEPHYR REGULAR TR BAND (606595) opened to sterile field. 10:49:20 Aortic Root visualized 10:51:12 Sheath removed intact; hemostasis achieved with Mechanical Compression to the Right Radial artery. 10:51:45 Procedure ended.(Physican Out) 10:52:03 Fluoroscopy time 02.30 minutes. 10:52:06 Fluoroscopy dose: 499 mGy 10:52:06 Flurop Dose total: 499 10:52:11 Dose Area Product 47352 mGy/cm. 10:52:17 Contrast amount:Isovue 300 62ml. 10:52:20 Maximum allowable dose exceeded? No. 10:52:21 Sharps counted by scrub and verified by R.N. 10:52:29 United band inflated with 10cc of air. 10:52:31 Insertion/operative site no bleeding no hematoma. 10:52:38 Post-op/insertion site Right Radial artery dressed using a 4 x 4 and Tegaderm. 10:52:43 Post Procedure Pulses reassessed and unchanged 10:52:49 Post-procedure physical assessment completed. ASA score P 2 - A patient with mild systemic disease as per Tex Garcia MD. 10:52:52 Post procedure rhythm: unchanged. 10:52:55 Estimated blood loss: 5 ml 10:53:04 Post procedure instruction explained to patient.Patient verbalizes understanding. 10:53:15 Patient needs reinforcement of post procedure teaching. 10:53:53 Procedure type changed to Cath procedure, Diagnostic procedure, LHC, Coronaries only, Sedation Charges, Moderate Sedation up to 15 minutes 10:53:55 Procedure and supply charges have been captured, reviewed, submitted and are correct. 10:54:36 Procedure Complication : No complications 10:54:38 Vital chart was stopped 10:54:39 [facility] Findings: mild to moderate CAD (<70%) 10:54:43 Operative report dictated upon procedure completion. 10:54:43 See physician's report for complete and final results. 10:54:45 Report given to Pre/Post Procedure Room. 10:54:48 Patient transfered to Pre/Post Procedure Room with Stretcher. 10:54:50 Procedure ended. 10:54:50 Full Disclosure recording stopped Device Usage Item Name Manufacture Quantity Catalog Hospital Part Current Minima l Lot# / Number Charge Number Stock Stock Serial# Code ACIST Acist 1 96137 [id number] 288486 189467 20 Syringe Medical (08361) Systems Inc Medline Medline 1 [id number] 700247 03286 874112 5 Cath Pack ([id number]) Bag Microtek 1 2001S 499800 82155 305833 5 Decanter Medical Inc. () ACIST Hand Acist 1 78707 588634 866296 410669 5 Control Medical (43787) Systems Inc ACIST Acist 1 10723 096737 289431 889383 5 Manifold Medical (28464) Systems Inc MBrace Advanced 1 140-0250-00 641829 24364 923500 5 Wrist Vascular Support Dynamics ([id number]) EMERALD Cardinal 1 502-455 414020 328277 868252 5 Guide Wire Health (502455) SHEATH 6FR Cardinal 1 9211643 780270 0312016 133361 5 RAIN Health (3567461) NEEDLE Cook Cook Medical 1 [id number] 090383 228461 108948 5 21G 4cm Radial (V15201) DIAGNOSTIC Terumo 1 405023 699315 721981 440694 5 Francisco 110cm 5Fr catheter (890348) DIAGNOSTIC Cardinal 1 [id number] 290659 237458 298847 5 Pigtail 5Fr Health catheter (133140Q) ZEPHYR Cardinal 1 058408 247594 1144771 531976 5 REGULAR TR Health BAND (344836) Signature Audit Callands Stage Time Signature Unsigned Intra-Procedure 06/19/2020 Marlene Buchanan 10:55:10 AM RT(R); Leslee Shepherd RN; Tex Garcia MD Signatures Performing Physician : Signature : Tex Garcia MD Date : Time : Monitor : Marlene Dewayne Signature : RT Date : Time : Nurse : Lillian Fortino RN Signature : Date : Time : [address] [place] [address]
[2020-06-19] MEDS ORDERED: TERBINAFINE HC250 MG PO (08:25)
[2020-06-19 08:33] VITALS: BP 135/70; Ht 167.6 cm; Wt 67.3 kg
[2020-06-19 08:48] LABS: BASOPHILS 0.3 % (0-2); EOSINOPHILS 1.9 % (0-7); HEMATOCRIT 45.6 % (42.0-54.0); HEMOGLOBIN 15.2 g/dL (13.5-17.5); IMMATURE GRANULOCYTES 0.4 % (0-5); LYMPHOCYTES 22.5 % (15-50); MCH 29.4 pg (26.0-34.0); MCHC 33.3 g/dL (31.0-37.0); MCV 88.2 fL (80.0-100.0); MEAN PLATELET VOLUME 10.4 fL (7.4-10.4); MONOCYTES 7.4 % (2-11); NEUTROPHILS 67.5 % (40-80); PLATELET COUNT 251 10x3/uL (130-400); RBC 5.17 10x6/uL (4.20-6.10); WBC 7.5 10x3/uL (4.8-10.8)
[2020-06-19 09:07] LABS: ALT (SGPT) 31 U/L (10-68); CALC OSMOLALITY 281 mosm/kg (275-300); CALCIUM 9.6 mg/dL (8.5-10.1); CHLORIDE - SERUM 106 mmol/L (98-107); CHOL - HDL RATIO 6.5 ratio (2.3-4.9); CHOLESTEROL, TOTAL 278 mg/dL (0-200); CREATININE - SERUM 0.9 mg/dL (0.6-1.3); GLUCOSE 103 mg/dL (74-106); HDL CHOLESTEROL 43 mg/dL (32-96); LDL CHOLESTEROL 213 mg/dL (0-100); POTASSIUM - SERUM 3.9 mmol/L (3.5-5.1); SODIUM 141 mmol/L (136-145); TRIGLYCERIDE 112 mg/dL (30-200); UREA NITROGEN 14 mg/dL (7-18); eGFR NON AFRICAN AMERICAN > 90 mL/min (90-120)
--- NOTE | 2020-06-19 11:05 | NUR ---
PT RECEIVED VIA STRETCHER FROM DIRECTOR OF ACCOUNTING FOR RECOVERY. PT SLEEPING, VERBALLY AROUSALBE. PT DENIES PAIN OR DISCOMFORT. IV PATENT INFUSING VIA R ARM PER ORDERS. PT PLACED ON CARDIAC MONITORS AND O2 VIA NC AT 2L. HR SB RATE 45, BP 109/59, RR 13, SAT 99. ZYPHER BAND AND IMMOBILIZER TO R WRIST/ARM. ARM PINK AND WARM. CAP REFILL UNABLE TO OBTAIN DUE TO THICKEN NAILS.. NO BLEEDING OR S/S HEMATOMA NOTED. CALL LIGHT IN REACH, FRIEND AT BS
--- NOTE | 2020-06-19 11:30 | NUR ---
PT RESTING COMFORTABLY. ZBAND AND IMMOBILIZER IN PLACE. NO BLEEDING OR S/S HEMATOMA NOTED. VSS AT PRESENT. CALL LIGHT IN REACH.
--- NOTE | 2020-06-19 12:12 | NUR ---
5CC AIR REMOVED FROM Z BAND, NO BLEEDING NOTED. ZBAND AND IMMOBILIZER REMAIN IN PLACE. VSS. HOB ELEVATED, SANDWICH AND DRINK SERVED. O2 REMOVED , SAT 99 ON ROOM AIR. CALL LIGHT IN REACH. PT DENIES PAIN OR NEEDS AT THIS TIME.
--- NOTE | 2020-06-19 12:27 | NUR ---
PT C/O R UPPER ARM HURTING, IV INFILTRATED, FLUIDS STOPPED. WARM COMPRESS APPLIED. WILL REMOVE IV.
--- NOTE | 2020-06-19 12:32 | NUR ---
IV REMOVED W CATH INTACT. WARM COMPRESS RE APPLIED. PT STATES PAIN IS BETTER. 2 ADD'L CC AIR REMOVED FROM Z BAND. NO BLEEDING OR S/S HEMATOMA NOTED. VSS. CALL LIGHT IN REACH
--- NOTE | 2020-06-19 12:50 | NUR ---
DISCHARGE INSTRUCTIONS REVIEWED W PT, HE VERBALIZED UNDERSTANDING. MONITORS REMOVED. PT STATES ARM NOT HURTING ANYMORE, SWELLING DOWN. PT INSTRUCTED TO USE HEAT FOR DISCOMFORT. REMAINING AIR REMOVED FROM Z BAND. PT UP TO DRESS FOR DISCHARGE, ZBAND AND IMMOBILIZER IN PLACE
--- NOTE | 2020-06-19 13:03 | NUR ---
PT AMBULATED TO BR VOIDING W/O DIFFICULITY. ZBAND REMOVED, NO BLEEDING OR HEMATOMA NOTED. 2X2 X TEGADERM DRESSING APPLIED. IMMOBILIZER REAPPLIED.
--- NOTE | 2020-06-19 13:12 | NUR ---
PT DISCHARGED VIA WC TO FRIEND WAITING IN PRIVATE VEHICLE. PT HAD ALL BELONGINGS AND DISCHARGE PAPERWORK
== END 2020-06-19 13:10 | disposition home or self-care (01) ==
LOC: D.CATH 07:10
PROVIDERS: ATTEND Internal Medicine Cardiovascular Disease
DX: I35.0 Nonrheumatic aortic (valve) stenosis (principal); I25.10 Atherosclerotic heart disease of native coronary artery without angina pectoris; R07.9 Chest pain, unspecified; R06.09 Other forms of dyspnea; Z72.0 Tobacco use

== ENCOUNTER 2020-06-26 12:39 | Inpatient (IN) | payer OTHER ==
[~2020-06-26] VITALS: Ht 167.6 cm; Wt 68.2 kg
[~2020-06-26 12:39] MED LIST changes: +TERBINAFINE HC250 MG PO
[2020-06-26 15:01] LABS: BILIRUBIN NEGATIVE (NEGATIVE); GLUCOSE NEGATIVE (NEGATIVE); KETONE NEGATIVE (NEGATIVE); NITRITE NEGATIVE (NEGATIVE); UROBILINOGEN NORMAL (NORMAL)
[2020-06-26 15:30] LABS: ALBUMIN 3.5 g/dL (3.4-5.0); ALKALINE PHOSPHATASE 113 U/L (30-120); ALT (SGPT) 30 U/L (10-68); BILIRUBIN - TOTAL 0.32 mg/dL (0.2-1.3); CALC OSMOLALITY 282 mosm/kg (275-300); CALCIUM 8.4 mg/dL (8.5-10.1); CARBON DIOXIDE 30.8 mmol/L (21.0-32.0); CHLORIDE - SERUM 104 mmol/L (98-107); CHOLESTEROL, TOTAL 295 mg/dL (0-200); CREATININE - SERUM 0.9 mg/dL (0.6-1.3); GLUCOSE 84 mg/dL (74-106); PHOSPHOROUS 3.5 mg/dL (2.5-4.9); POTASSIUM - SERUM 4.2 mmol/L (3.5-5.1); PROTEIN - SERUM 7.1 g/dL (6.4-8.2); SODIUM 142 mmol/L (136-145); T4 THYROXIN - FREE 1.23 ng/dL (0.76-1.46); THYROID STIMULATING HORMONE 1.58 uIU/mL (0.36-3.74); UREA NITROGEN 16 mg/dL (7-18); URIC ACID 5.2 mg/dL (2.6-7.2); eGFR NON AFRICAN AMERICAN > 90 mL/min (90-120)
[2020-06-26 15:38] LABS: APTT 34.9 SECONDS (22.8-39.4); INR 0.92 (0.85-1.17); PROTIME 12.3 SECONDS (11.6-15.0)
[2020-06-26 15:45] LABS: BASOPHILS 0.3 % (0-2); HEMOGLOBIN 14.9 g/dL (13.5-17.5); IMMATURE GRANULOCYTES 0.2 % (0-5); MCHC 33.1 g/dL (31.0-37.0); MCV 87.7 fL (80.0-100.0); MEAN PLATELET VOLUME 10.5 fL (7.4-10.4); MONOCYTES 8.8 % (2-11); NEUTROPHILS 61.7 % (40-80); PLATELET COUNT 251 10x3/uL (130-400); RBC 5.13 10x6/uL (4.20-6.10); RDW 13.9 % (11.5-14.5); WBC 6.6 10x3/uL (4.8-10.8)
[2020-06-29] VITALS (24 sets, daily range): BP systolic 100–158; BP diastolic 51–80; BMI 24.1
--- NOTE | 2020-06-29 13:16 | NUR ---
REC'D PT TO ICU. ALL MONITORING EQUIPMENT ATTACHED AND PT AWAKING AND SHAKING ELEVATING BP. CLEVIPRES AND NITRO TITRATING TO CONTROL BP.
--- NOTE | 2020-06-29 15:58 | NUR ---
CPAP TRIALS IN PROGRESS. ABG DRAWN AFTER 30 MIN CPAP. AWAITING CALL BACK.
--- NOTE | 2020-06-29 16:49 | NUR ---
DR VIDES AT BS. AB'S REVIEWED. RT AT BS. WILL EXTUBATE ORDERED.
--- NOTE | 2020-06-29 17:34 | NUR ---
PT EXTUBATED TO 3LNC. PT C/O CHEST PAIN. MS GIVEN AND STARTED IS. PT PULLS 500 X 2 WITH GOOD EFFORT.
[2020-06-30] VITALS (30 sets, daily range): BP systolic 101–128; BP diastolic 48–67; Ht 167.6 cm; Wt 68.2 kg
[2020-06-30 06:38] LABS: BASOPHILS 0.1 % (0-2); EOSINOPHILS 0 % (0-7); HEMATOCRIT 37.9 % (42.0-54.0); HEMOGLOBIN 12.4 g/dL (13.5-17.5); IMMATURE GRANULOCYTES 0.3 % (0-5); LYMPHOCYTES 11.5 % (15-50); MCH 29.2 pg (26.0-34.0); MCHC 32.7 g/dL (31.0-37.0); MCV 89.2 fL (80.0-100.0); MEAN PLATELET VOLUME 10.7 fL (7.4-10.4); MONOCYTES 12.8 % (2-11); NEUTROPHILS 75.3 % (40-80); RBC 4.25 10x6/uL (4.20-6.10); RDW 14.5 % (11.5-14.5)
[2020-06-30 06:43] LABS: PLATELET COUNT 180 10x3/uL (130-400)
[2020-06-30 06:55] LABS: ALBUMIN 3.2 g/dL (3.4-5.0); ALKALINE PHOSPHATASE 69 U/L (30-120); ALT (SGPT) 25 U/L (10-68); CALC OSMOLALITY 282 mosm/kg (275-300); CALCIUM 7.3 mg/dL (8.5-10.1); CARBON DIOXIDE 27.7 mmol/L (21.0-32.0); CHLORIDE - SERUM 104 mmol/L (98-107); MAGNESIUM - SERUM 2.3 mg/dL (1.8-2.4); PHOSPHOROUS 3.2 mg/dL (2.5-4.9); POTASSIUM - SERUM 4.1 mmol/L (3.5-5.1); PROTEIN - SERUM 5.9 g/dL (6.4-8.2); SODIUM 140 mmol/L (136-145); UREA NITROGEN 17 mg/dL (7-18); eGFR NON AFRICAN AMERICAN 81 mL/min (90-120)
[2020-06-30 07:00] LABS: GLUCOSE 140 mg/dL (74-106)
--- NOTE | 2020-06-30 10:56 | NUR ---
PT ANNA CHAN WITH PT.
--- NOTE | 2020-06-30 11:26 | OP ---
PATIENT NAME: ANDREW SANCHES MEDICAL RECORD: [id number] :60 LOCATION:[facility].CV08 ADMISSION DATE:06/29/20 SURGEON: SAMIR VIDES MD DATE OF OPERATION: 06/29/2020 PROCEDURE PERFORMED: Aortic valve replacement. SURGEON: Samir Vides MD ANESTHESIA: General endotracheal anesthesia. PREOPERATIVE DIAGNOSES: Aortic stenosis and coronary artery disease, status post left anterior descending stent. POSTOPERATIVE DIAGNOSES: Aortic stenosis and coronary artery disease, status post left anterior descending stent. SPECIMENS: Aortic valve leaflets. COMPLICATIONS: None. BLOOD LOSS: Total with Cell Saver. CONDITION: Stable. DISPOSITION: CV ICU. OPERATIVE FINDINGS: 1. ARIADNA aortic valve area 0.4 cm-squared. 2. Severely calcified aortic valve leaflets and annulus with fusion of the left and right aortic valve cusps. OPERATIVE INDICATION: Aortic stenosis, chest pain, and dyspnea. PROCEDURE IN DETAIL: The patient was brought to the operative suite. General anesthesia was obtained. The patient was prepped and draped. Median sternotomy incision was made. Subcutaneous tissue was divided with electrocautery. Sternum was divided with a saw. Pericardium was opened and heparin was given. The aorta was cannulated. Dual stage venous cannula was inserted. Activated clotting time was appropriately elevated and the patient was placed in cardiopulmonary bypass. Retrograde cardioplegic cannula was inserted. The patient was cooled. Crossclamp was placed. Cardioplegia was given through an antegrade 14-gauge angiocatheter and then retrograde. Left ventricular vent was placed. A transverse aortotomy was performed. Aortic valve was visualized, debrided. All bits of loose debris were thoroughly irrigated. The valve was sized appropriately. Left main was protected during irrigation. Interrupted pledgeted valve sutures were placed from the ventricular to the aortic side. Then, through the valve sewing ring valve was carefully lowered in place. All sutures were tied. Inspection through the valve revealed no subvalvular obstruction and no perivalvular leaks. The patient was rewarmed. The aortotomy was closed. The patient was in steep Trendelenburg position and the left ventricular apex was de-aired. The aortic root was de-aired through the 14-gauge angiocatheter site as the heart restarted. This was later closed. The LV vent was removed. Retrograde cardioplegia cannula was removed and the site was oversewn. The patient was fully rewarmed in a sinus rhythm and was weaned OPERATIVE REPORT [id number] ANDREW SANCHES from cardiopulmonary bypass with stable. The patient was decannulated. Aortic cannulation site was oversewn with a nonpledgeted suture. Protamine was given. Thorough irrigation was undertaken. Hemostasis was ensured. Drains were placed in the mediastinum and left pleural cavity. Atrioventricular pacing wires were placed. The Pericardial fat was loosely reapproximated. The chest tubes were placed in the mediastinum. Sternum was closed with wires. Fascia was closed. Subcutaneous tissue closed. Skin was closed. Dermabond was placed. The needle and sponge counts were correct. The patient was taken to ICU in stable condition. TRANSINT:[id number] Voice Confirmation ID: [id number] DOCUMENT ID: [id number] SAMIR VIDES MD at 1126 CC: BETTYE PLAMER M.D. [id number] DICTATION DATE: 06/29/20 140 RN TRANSITIONAL: 06/30/20 0003 ADM IN [facility] [address] [place] [address]
--- NOTE | 2020-06-30 13:32 | NUR ---
PT ANNA CHAN AGAIN. BACK TO BED AND DR VIDES PULLED CT. MS GIVEN PRIOR TO.
--- NOTE | 2020-06-30 16:57 | NUR ---
PT ANNA 40 FT IN CHAN WITH THIS RN. PT LIEN WELL.
[2020-07-01] VITALS (29 sets, daily range): BP systolic 99–118; BP diastolic 48–85
[2020-07-01 07:10] LABS: ALBUMIN 2.7 g/dL (3.4-5.0); ALKALINE PHOSPHATASE 59 U/L (30-120); BILIRUBIN - TOTAL 0.39 mg/dL (0.2-1.3); CALC OSMOLALITY 276 mosm/kg (275-300); CALCIUM 7.7 mg/dL (8.5-10.1); CARBON DIOXIDE 28.6 mmol/L (21.0-32.0); CHLORIDE - SERUM 103 mmol/L (98-107); CREATININE - SERUM 0.9 mg/dL (0.6-1.3); GLUCOSE 130 mg/dL (74-106); MAGNESIUM - SERUM 2.2 mg/dL (1.8-2.4); PROTEIN - SERUM 5.8 g/dL (6.4-8.2); SODIUM 137 mmol/L (136-145); UREA NITROGEN 14 mg/dL (7-18); eGFR NON AFRICAN AMERICAN > 90 mL/min (90-120)
[2020-07-01 07:18] LABS: ALT (SGPT) 18 U/L (10-68); PHOSPHOROUS 1.4 mg/dL (2.5-4.9)
[2020-07-01 09:15] LABS: BASOPHILS 0.1 % (0-2); EOSINOPHILS 0.3 % (0-7); HEMOGLOBIN 10.8 g/dL (13.5-17.5); IMMATURE GRANULOCYTES 0.2 % (0-5); LYMPHOCYTES 11.1 % (15-50); MCH 29.1 pg (26.0-34.0); MCHC 32.7 g/dL (31.0-37.0); MCV 88.9 fL (80.0-100.0); MEAN PLATELET VOLUME 10.8 fL (7.4-10.4); MONOCYTES 10.7 % (2-11); NEUTROPHILS 77.6 % (40-80); PLATELET COUNT 150 10x3/uL (130-400); RBC 3.71 10x6/uL (4.20-6.10); RDW 14.2 % (11.5-14.5); WBC 9.3 10x3/uL (4.8-10.8)
--- NOTE | 2020-07-01 19:00 | NUR ---
REPORT RECEIVED. RECEIVED PATIENT UP IN BEDSIDE CHAIR AWAKE ALERT AND ORIENTED X 4. ASSESSMENT COMPLETED PER FLOW SHEET WITH NO ACUTE DISTRESS OBSERVED. MONITORS CONNECTED TO PATIENT WITH ALARMS SET. VSS. CALL LIGHT IN REACH AND ABLE TO UTILIZE TO MAKE NEEDS KNOWN. WILL CONT CURRENT POC. 1929 ASSISTED TO BED PER REQUEST. LIEN ESPARZA
[2020-07-02] VITALS (24 sets, daily range): BP systolic 96–123; BP diastolic 48–73
[2020-07-02 05:30] LABS: BASOPHILS 0.1 % (0-2); EOSINOPHILS 0.8 % (0-7); IMMATURE GRANULOCYTES 0.1 % (0-5); LYMPHOCYTES 20.6 % (15-50); MCH 28.5 pg (26.0-34.0); MCHC 32.3 g/dL (31.0-37.0); MCV 88.3 fL (80.0-100.0); MEAN PLATELET VOLUME 10.4 fL (7.4-10.4); MONOCYTES 10.6 % (2-11); NEUTROPHILS 67.8 % (40-80); PLATELET COUNT 154 10x3/uL (130-400); RBC 3.51 10x6/uL (4.20-6.10); RDW 14.1 % (11.5-14.5); WBC 8.3 10x3/uL (4.8-10.8)
[2020-07-02 06:13] LABS: ALBUMIN 2.5 g/dL (3.4-5.0); ALKALINE PHOSPHATASE 67 U/L (30-120); ALT (SGPT) 18 U/L (10-68); BILIRUBIN - TOTAL 0.41 mg/dL (0.2-1.3); CALC OSMOLALITY 277 mosm/kg (275-300); CALCIUM 7.9 mg/dL (8.5-10.1); CARBON DIOXIDE 28.5 mmol/L (21.0-32.0); CHLORIDE - SERUM 103 mmol/L (98-107); CREATININE - SERUM 0.8 mg/dL (0.6-1.3); GLUCOSE 103 mg/dL (74-106); MAGNESIUM - SERUM 2.1 mg/dL (1.8-2.4); POTASSIUM - SERUM 3.8 mmol/L (3.5-5.1); PROTEIN - SERUM 5.8 g/dL (6.4-8.2); SODIUM 138 mmol/L (136-145); UREA NITROGEN 17 mg/dL (7-18); eGFR NON AFRICAN AMERICAN > 90 mL/min (90-120)
[2020-07-02 06:16] LABS: PHOSPHOROUS 2.7 mg/dL (2.5-4.9)
--- NOTE | 2020-07-02 07:00 | NUR ---
PT REPORT RECEIVED FROM HEALTH CARE SANITARY TECHNICIAN NURSE. NO ACUTE SIGNS OF DISTRESS NOTED. PT SITTING IN BEDSIDE CHAIR. WANTS TO GO BACK TO BED. TOLD PT AFTER BREAKFAST HE CAN GET BACK IN BED. SHIFT ASSESSMENT COMPLETED. WILL CONTINUE TO MONITOR
--- NOTE | 2020-07-02 08:25 | NUR ---
PT ASSISTED BACK IN TO BED. TOLERATED WELL. [facility]
--- NOTE | 2020-07-02 11:00 | NUR ---
PT RESTING IN BED. REASSESSMENT COMPLETED. NO SIGNS OF DISTRESS NOTED. WILL CONTINUE TO MONITOR
--- NOTE | 2020-07-02 11:41 | NUR ---
Nutrition Follow-up: POD 3 AVR. Pt sleeping soundly at time of visit; RD did not disturb. Nursing reports pt tolerating PO intake. Diet: Regular Wt: 149.4# (07/02) Labs noted: Ca 7.9, Alb 2.5 Meds noted: Protonix, Senokot, Colace, electrolyte protocol -Encourage PO intake and honor food preferences. -Monitor wt. -RD following.
--- NOTE | 2020-07-02 13:30 | NUR ---
DR VIDES IN ROOM. PACER WIRES PULLED. PT TOLERATED WELL. ORDER RECEIVED TO D/C MARY AT 1600. WILL CONTINUE TO MONITOR
--- NOTE | 2020-07-02 14:58 | NUR ---
PT REASSESSMENT COMPLETED. NO SIGNS OF DISTRESS NOTED. NO COMPLAINTS NOTED AT THIS TIME. WILL CONTINUE TO MONITOR
--- NOTE | 2020-07-02 16:51 | NUR ---
PT UP AMBULATING DOWN CHAN. WALKED TO DOUBLE DOORS BY CV 1. WALKED BACK. IN BEDSIDE CHAIR EATING DINNER NOW. WILL CONTINEU TO MONITOR
--- NOTE | 2020-07-02 19:00 | NUR ---
REPORT RECEIVED. PT RESTING IN BED, AAOX4. ASSESSMENT COMPLETED, SEE FLOWSHEET. LT FOREARM PIV TO SL. WILL CONTINUE TO MONITOR.
[2020-07-03] VITALS (24 sets, daily range): BP systolic 91–129; BP diastolic 6–74
--- NOTE | 2020-07-03 00:28 | NUR ---
PT ASSISTED TO BATHROOM. NO DIFFICULTY NOTED.
[2020-07-03 04:20] LABS: BASOPHILS 0.3 % (0-2); EOSINOPHILS 1.7 % (0-7); HEMATOCRIT 31.9 % (42.0-54.0); HEMOGLOBIN 10.7 g/dL (13.5-17.5); IMMATURE GRANULOCYTES 0.3 % (0-5); LYMPHOCYTES 18.2 % (15-50); MCH 29.2 pg (26.0-34.0); MCHC 33.5 g/dL (31.0-37.0); MCV 86.9 fL (80.0-100.0); MEAN PLATELET VOLUME 10.1 fL (7.4-10.4); NEUTROPHILS 70.5 % (40-80); PLATELET COUNT 174 10x3/uL (130-400); RBC 3.67 10x6/uL (4.20-6.10); WBC 7.2 10x3/uL (4.8-10.8)
[2020-07-03 04:42] LABS: ALBUMIN 2.5 g/dL (3.4-5.0); ALKALINE PHOSPHATASE 83 U/L (30-120); BILIRUBIN - TOTAL 0.38 mg/dL (0.2-1.3); CALC OSMOLALITY 274 mosm/kg (275-300); CALCIUM 7.9 mg/dL (8.5-10.1); CARBON DIOXIDE 28.6 mmol/L (21.0-32.0); CHLORIDE - SERUM 103 mmol/L (98-107); CREATININE - SERUM 0.9 mg/dL (0.6-1.3); GLUCOSE 116 mg/dL (74-106); MAGNESIUM - SERUM 2.1 mg/dL (1.8-2.4); PHOSPHOROUS 2.7 mg/dL (2.5-4.9); POTASSIUM - SERUM 3.8 mmol/L (3.5-5.1); PROTEIN - SERUM 6.1 g/dL (6.4-8.2); SODIUM 136 mmol/L (136-145); UREA NITROGEN 18 mg/dL (7-18); eGFR NON AFRICAN AMERICAN > 90 mL/min (90-120)
[2020-07-03 04:51] LABS: ALT (SGPT) 29 U/L (10-68)
--- NOTE | 2020-07-03 07:00 | NUR ---
PT REPORT RECEIVED FROM PROCESS SAFETY MANAGEMENT ENGINEER NURSE. NO ACUTE SIGNS OF DISTRESS NOTED. SHIFT ASSESSMENT COMPLETED AT THIS TIME. NO COMPLAINTS VOICED FROM PT. WILL CONTINUE TO MONITOR
--- NOTE | 2020-07-03 09:40 | NUR ---
PT GIVEN CHG BATH. TOLERATED WELL. NO SIGNS OF DISTRESS NOTED. PT UP IN BEDSIDE CHAIR NOW. WILL CONTINUE TO MONITOR
--- NOTE | 2020-07-03 11:00 | NUR ---
PT RESTING IN CHAIR. NO COMPLAINTS NOTED AT THIS TIME. REASSESSMENT COMPLETED. WILL CONTINEU TO MONITOR
--- NOTE | 2020-07-03 13:00 | NUR ---
PT UP TO BATHROOM. NO SIGNS OF DISTRESS NOTED. VSS. WILL CONTINUE TO MONITOR
--- NOTE | 2020-07-03 13:03 | NUR ---
Rehab Note- Acute Inpatient Rehab prescreen order received. THe patient has [facility] insurance and would require a PreAuth. THe patient has been seen & followed by PT services and has been signed off to nursing- the patient is too functional physically for inpatient acute rehab at this time. THank you for this referral! Reba Alexandra RN Clinical Liaison, [facility] Rehab
--- NOTE | 2020-07-03 13:36 | TEE ---
PATIENT:ANDREW SANCHES MEDICAL RECORD: [id number] LOCATION:[place] [address] AGE OF PATIENT: 59 ADMISSION DATE: 06/29/20 SEX: M REFERRING PHYSICIAN: INTERPRETING PHYSICIAN: STELLA RUBALCAVA MD TRANSESOPHAGEAL ECHOCARDIOGRAM Date: 06/29/20 ARIADNA CHARGE Y INDICATIONS: AV REPLACEMENT PREMEDICATIONS: PATIENT'S RESPONSE PROCEDURE DOPPLER MEASUREMENTS: LVIT LA PA RA LVOT RVOT Asc. Ao AV Gradient Peak AV Mean AV Area 0.4 MV Gradient Peak MV Mean MV Area INTERPRETATION: Doppler: 2-D: COLOR FLOW DOPPLER NORMAL SALINE STUDY: MISCELLANOUS: DIAGNOSIS: PLAN: Vinyl Flooring Installer:3 Dr. Cabral Senior Research Analyst: Radha BOYCE COMMENTS: DATE OF SERVICE: 07/02/2020 Preoperative shows normal wall motion and normal thickening, EF 25%. Aortic valve is severely calcified with restriction of leaflet motion as well as mild AI. Left atrium appears normal. Mitral valve shows trivial MR. Postoperative normal wall motion and wall thickening, EF greater than 55%. Prosthetic aortic valve is noted with good valve excursion and no significant AI. Left atrium appears normal. Mitral valve shows no significant MR. TRANSESOPHAGEAL ECHOCARDIOGRAM REPORT [id number] ESTEFANY SANCHES TRANSINT:[id number] Voice Confirmation ID: [id number] DOCUMENT ID: [id number] at 1336 CC: [id number] DICTATION DATE: 07/02/20 0943 CORE WORKER: 07/03/20 0132 ADM IN [facility] [address] [place] [address]
--- NOTE | 2020-07-03 15:00 | NUR ---
PT REASSESSMENT COMPLETED. NO SIGNS OF DISTRESS NOTED. PT SITTING IN BEDSIDE CHAIR. WILL CONTINUE TO MONITOR
--- NOTE | 2020-07-03 15:30 | NUR ---
DR HDEZ AT BEDSIDE. UPDATE GIVEN. NO SIGNS OF DISTRESS NOTED. POSSIBLY DISCHARGING TOMORROW
--- NOTE | 2020-07-03 17:23 | NUR ---
PT ATE DINNER AND BACK IN BED. NO COMPLAINTS NOTED. WILL CONTINUE TO MONITOR
--- NOTE | 2020-07-03 19:00 | NUR ---
RECIVED REPORT AT BEDSIDE. PT IS SITTING UP IN BED A&OX4, VSS. HE DOES C/O OF PAIN "MY CHEST JUST PULLS". THIS IS NOT NEW PAIN. WILL PROVIDE PAIN MEDICATION PER ORDER PRN. SEE MAR. WILL PERFORM FULL ASSESSMENT AND DOC IN FLOWSHEET. BED IS LOW,SIDE RAISLX2,CALL LIGHT WITHIN REACH. WILL CONTINUE TO MONITOR
--- NOTE | 2020-07-03 20:41 | MORECARE ---
CASE MANAGEMENT DISCHARGE SUMMARY PATIENT: ANDREW SANCHES UNIT: [id number] ADM DATE: 06/29/20 AGE: 59 : 60 SEX: M ROOM/BED: [facility] AUTHOR: ANGELIKA ACKERMAN PHYSICIAN: REFERRING PHYSICIAN: JERRY VIDES MD DATE OF SERVICE: 07/03/20 Discharge Plan Patient Name: ANDREW SANCHES [facility] : 1960 Planned Disposition: Home Anticipated Discharge Date: Discharge Date: Expected LOS: Initial Reviewer: [email or web address] Initial Review Date: 06/29/2020 Generated: 07/03/20 9:41 pm DCPIA - Discharge Planning Initial Assessment Updated by [email or web address]: Carla Lechuga on 07/03/20 8:37 pm * Is the patient Alert and Oriented? Yes * How many steps to enter\exit or inside your home? * PCP [facility] * [facility]acy [facility] * ADLs Independent * Equipment None * List name and contact numbers for known caregivers / representatives who currently or will assist patient after discharge: NASRIN JAY [facility] - [phone] * Verbal permission to speak to the caregivers and representatives has been obtained from the patient. Yes * Community resources currently utilized None * Additional services required to return to the preadmission environment? No * Can the patient safely return to the preadmission environment? Yes * Has this patient been hospitalized within the prior 30 days at any hospital? No Patient Name: ANDREW SANCHES Page [id number] at 204 All edits/amendments must be made on the electronic document DICTATION DATE: 07/03/202040 CANNONEER: BHARATI 07/03/202040 RPT#: [id number] DC DATE: STATUS: ADM IN [facility] [address] [place] [address] END OF REPORT
--- NOTE | 2020-07-03 20:49 | MORECARE ---
CASE MANAGEMENT DISCHARGE SUMMARY PATIENT: ANDREW SANCHES UNIT: [id number] ADM DATE: 06/29/20 AGE: 59 : 60 SEX: M ROOM/BED: D.[facility] AUTHOR: TYRON,DOC PHYSICIAN: REFERRING PHYSICIAN: JERRY VIDES MD DATE OF SERVICE: 07/03/20 Discharge Plan Patient Name: ANDREW SANCHES Facility: [facility]:[place] : 1960 Planned Disposition: Home Anticipated Discharge Date: Discharge Date: Expected LOS: Initial Reviewer: [email or web address] Initial Review Date: 06/29/2020 Generated: 07/03/20 9:48 pm Comments DCP- Discharge Planning Updated by [email or web address]: Carla Lechuga on 07/03/20 7:[address] Patient Name: ANDREW SANCHES Admission Status: Elective Accout number: [id number] Admission Date: 06-29-2020 : 1960 Admission Diagnosis:NONRHEUMATIC AORTIC (VALVE) STENOSIS WITH INSUFFICIENCY Attending: JERRY VIDES Current LOS: 4 Anticipated DC Date: Planned Disposition: Home Primary Insurance: [employer] PPO Discharge Planning Comments: CM met with patient to complete initial dc planning assessment. CM educated patient on the CM role and verbal consent given by patient to complete assessment. Patient lives at home with a room mate. Patient states that his room ate has 2 big dogs and he fears going home and them jumping up on him. CM spoke with Dr. Iverson and order placed for rehab prescreen and OT eval. Patient is independent. At discharge patient plans to return home and feels this is a safe discharge. CM discussed availability of home health, rehab services, and medical equipment. Patient will have family to transport home. Patient denied known discharge needs at this time. CM will continue to follow and will assist as needed with dc plans/needs. Patient is to high functioning for inpatient rehab. CM will continue to follow and assist as needed with discharge planning / needs. Program Writer: Carla Lechuga DCPIA - Discharge Planning Initial Assessment Updated by [email or web address]: Carla Lechuga on 07/03/20 8:37 pm * Is the patient Alert and Oriented? Yes * How many steps to enter\exit or inside your home? * PCP [facility] * Pharmacy [facility] * ADLs Independent * Equipment None * List name and contact numbers for known caregivers / representatives who currently or will assist patient after discharge: NASRIN JAY - [place] - [phone] * Verbal permission to speak to the caregivers and representatives has been obtained from the patient. Yes * Community resources currently utilized None * Additional services required to return to the preadmission environment? No * Can the patient safely return to the preadmission environment? Yes * Has this patient been hospitalized within the prior 30 days at any hospital? No Last DP export: 07/03/20 7:41 p Patient Name: ANDREW SANCHES Page 99923 at 2049 All edits/amendments must be made on the electronic document DICTATION DATE: 07/03/202047 DINING [employer] DIRECTOR: BHARATI 07/03/202047 RPT#: [id number] DC DATE: STATUS: ADM IN [facility] [address] [place] [address] END OF REPORT
--- NOTE | 2020-07-03 23:10 | NUR ---
PT IS RESTING IN BED WITH EYES CLOSED. AWAKES EASILY. VOICES NO NEEDS OR C/O OF PAIN AT THIS TIME. RE-ASSESSMETN DONE AND WILL DOC IN FLOWHSEET. BED IS LOW,SIDE RAISLX2,CALL LIGHT WITHIN REACH. WILL CONITNUE TO MONITOR
[2020-07-04] VITALS (13 sets, daily range): BP systolic 93–122; BP diastolic 54–79
[2020-07-04 04:35] LABS: BASOPHILS 0.1 % (0-2); EOSINOPHILS 3.8 % (0-7); HEMATOCRIT 32.4 % (42.0-54.0); HEMOGLOBIN 10.8 g/dL (13.5-17.5); IMMATURE GRANULOCYTES 0.1 % (0-5); LYMPHOCYTES 19.8 % (15-50); MCH 28.9 pg (26.0-34.0); MCHC 33.3 g/dL (31.0-37.0); MCV 86.6 fL (80.0-100.0); MEAN PLATELET VOLUME 9.9 fL (7.4-10.4); MONOCYTES 10.6 % (2-11); NEUTROPHILS 65.6 % (40-80); PLATELET COUNT 204 10x3/uL (130-400); RBC 3.74 10x6/uL (4.20-6.10); WBC 6.9 10x3/uL (4.8-10.8)
--- NOTE | 2020-07-04 05:15 | NUR ---
PT USED CALL LIGHT AND ASKED TO GET UP IN THE CHAIR. PT INDEPENDENTLY GOT IN CHAIR FOR COMFORT. HE VOICES NO NEEDS OR C/O AT THIS TIME. BEDSIDE TABLE IS BY SIDE, WHEELS ARE LOCKED ON CHAIR. CALL LIGHT IS WITHIN REACH. VSS. WILL CONITNUE TO MONITOR
[2020-07-04 05:24] LABS: ALBUMIN 2.5 g/dL (3.4-5.0); ALKALINE PHOSPHATASE 107 U/L (30-120); ALT (SGPT) 48 U/L (10-68); BILIRUBIN - TOTAL 0.34 mg/dL (0.2-1.3); CALC OSMOLALITY 274 mosm/kg (275-300); CALCIUM 8.1 mg/dL (8.5-10.1); CARBON DIOXIDE 23.6 mmol/L (21.0-32.0); CHLORIDE - SERUM 104 mmol/L (98-107); CREATININE - SERUM 0.8 mg/dL (0.6-1.3); GLUCOSE 103 mg/dL (74-106); POTASSIUM - SERUM 3.5 mmol/L (3.5-5.1); PROTEIN - SERUM 6.4 g/dL (6.4-8.2); SODIUM 137 mmol/L (136-145); UREA NITROGEN 15 mg/dL (7-18); eGFR NON AFRICAN AMERICAN > 90 mL/min (90-120)
--- NOTE | 2020-07-04 09:39 | NUR ---
XRAY IN TO GET PT. PT WHEELED DOWN TO XRAY IN WHEELCHAIR. WILL CONTINUE TO MONITOR
--- NOTE | 2020-07-04 11:30 | NUR ---
DR HDEZ IN ROOM. UPDATE GIVEN. PLAN ON DISCHARGE TODAY. DR HDEZ'S NURSE, DION, STATED SHE WOULD PUT D/C ORDERS IN. WILL CONTINUE TO MONITOR
[2020-07-04] MEDS ORDERED: PERCOCET 5-3251 TAB PO (12:07)
--- NOTE | 2020-07-04 12:36 | NUR ---
Nutrition Follow-up: POD 5 AVR. Good appetite. Reports eating majority of breakfast this AM. Noted plans to d/c today. Diet: Regular Wt: 150# (07/04) Last BM: 07/04 Labs noted: Ca 8.1, Alb 2.5 Meds noted: Protonix, Colace, electrolyte protocol -RD following.
--- NOTE | 2020-07-04 13:41 | NUR ---
DISCHARGED AT 1335. PT HAS ALL BELONGINGS WITH HIM.
--- NOTE | 2020-07-05 11:14 | MORECARE ---
CASE MANAGEMENT DISCHARGE SUMMARY PATIENT: ANDREW SANCHES UNIT: [id number] ADM DATE: 06/29/20 AGE: 59 : 60 SEX: M ROOM/BED: D.[facility] AUTHOR: TYRON,DOC PHYSICIAN: REFERRING PHYSICIAN: JERRY VIDES MD DATE OF SERVICE: 07/05/20 Discharge Plan Patient Name: ANDREW SANCHES Facility: [facility]:[place] : 1960 Planned Disposition: Home Anticipated Discharge Date: Discharge Date: 07/04/2020 Expected LOS: Initial Reviewer: [email or web address] Initial Review Date: 06/29/2020 Generated: 07/05/20 12:14 pm Comments DCP- Discharge Planning Updated by [email or web address]: Carla Lechuga on 07/03/20 7:[address] Patient Name: ANDREW SANCHES Admission Status: Elective Accout number: [id number] Admission Date: 06-29-2020 : 1960 Admission Diagnosis:NONRHEUMATIC AORTIC (VALVE) STENOSIS WITH INSUFFICIENCY Attending: JERRY VIDES Current LOS: 4 Anticipated DC Date: Planned Disposition: Home Primary Insurance: [employer] PPO Discharge Planning Comments: CM met with patient to complete initial dc planning assessment. CM educated patient on the CM role and verbal consent given by patient to complete assessment. Patient lives at home with a room mate. Patient states that his room ate has 2 big dogs and he fears going home and them jumping up on him. CM spoke with Dr. Iverson and order placed for rehab prescreen and OT eval. Patient is independent. At discharge patient plans to return home and feels this is a safe discharge. CM discussed availability of home health, rehab services, and medical equipment. Patient will have family to transport home. Patient denied known discharge needs at this time. CM will continue to follow and will assist as needed with dc plans/needs. Patient is to high functioning for inpatient rehab. CM will continue to follow and assist as needed with discharge planning / needs. Fish Cutter: Carla Lechuga DCPIA - Discharge Planning Initial Assessment Updated by [email or web address]: Carla Lechuga on 07/03/20 8:37 pm * Is the patient Alert and Oriented? Yes * How many steps to enter\exit or inside your home? * PCP [facility] * Pharmacy [facility] * ADLs Independent * Equipment None * List name and contact numbers for known caregivers / representatives who currently or will assist patient after discharge: NASRIN TIRADO - [phone] * Verbal permission to speak to the caregivers and representatives has been obtained from the patient. Yes * Community resources currently utilized None * Additional services required to return to the preadmission environment? No * Can the patient safely return to the preadmission environment? Yes * Has this patient been hospitalized within the prior 30 days at any hospital? No Last DP export: 07/03/20 7:49 p Patient Name: ANDREW SANCHES Page 41922 at 1114 All edits/amendments must be made on the electronic document DICTATION DATE: 07/05/20 111 DIRECTOR OF CONTENT MARKETING: BHARATI 07/05/20 111 RPT#: [id number] DC DATE:07/04/20 STATUS: DIS IN [facility] [address] [place] [address] END OF REPORT
== END 2020-07-04 13:35 | disposition home or self-care (01) | DRG 220 ==
LOC: D.SDCHOLD 06-28 07:30 → D.CVICU 06-29 05:00 → D.SDCHOLD 06-29 07:30 → D.CVICU 06-29 12:42
PROVIDERS: ADMIT Thoracic Surgery (Cardiothoracic Vascular Surgery); ATTEND Thoracic Surgery (Cardiothoracic Vascular Surgery)
PROC: 5A1221Z Performance of Cardiac Output, Continuous (ICD-10-PCS; 2020-06-29)
PROC: B24BZZ4 Ultrasonography of Heart with Aorta, Transesophageal (ICD-10-PCS; 2020-06-29)
PROC: 02RF08Z Replacement of Aortic Valve with Zooplastic Tissue, Open Approach (ICD-10-PCS; principal; 2020-06-29 07:30)
DX: I35.2 Nonrheumatic aortic (valve) stenosis with insufficiency (principal); F17.203 Nicotine dependence unspecified, with withdrawal; I25.10 Atherosclerotic heart disease of native coronary artery without angina pectoris; I10 Essential (primary) hypertension; J44.9 Chronic obstructive pulmonary disease, unspecified; D64.9 Anemia, unspecified

== ENCOUNTER 2020-07-19 21:51 | Observation (INO) | payer OTHER ==
[~2020-07-19] VITALS: Ht 167.6 cm; Wt 65.9 kg
[~2020-07-19 21:51] MED LIST changes: +PERCOCET 5-3251 TAB PO
[2020-07-19 22:35] LABS: BASOPHILS 0.3 % (0-2); EOSINOPHILS 3.3 % (0-7); HEMATOCRIT 37.5 % (42.0-54.0); HEMOGLOBIN 12.6 g/dL (13.5-17.5); IMMATURE GRANULOCYTES 0.5 % (0-5); MCHC 33.6 g/dL (31.0-37.0); MCV 86.4 fL (80.0-100.0); MONOCYTES 6.9 % (2-11); RBC 4.34 10x6/uL (4.20-6.10); RDW 13.6 % (11.5-14.5); WBC 6.4 10x3/uL (4.8-10.8)
[2020-07-19 22:37] LABS: PLATELET COUNT 332 10x3/uL (130-400)
[2020-07-19 22:53] VITALS: BP 125/62
[2020-07-19 23:00] VITALS: BP 119/64
[2020-07-19 23:15] LABS: TROPONIN-I < 0.017 ng/mL (0.000-0.060)
[2020-07-19 23:35] LABS: CALC OSMOLALITY 278 mosm/kg (275-300); GLUCOSE 186 mg/dL (74-106); SODIUM 136 mmol/L (136-145); UREA NITROGEN 18 mg/dL (7-18); eGFR NON AFRICAN AMERICAN 81 mL/min (90-120)
[2020-07-19 23:36] LABS: ALBUMIN 3.3 g/dL (3.4-5.0); ALKALINE PHOSPHATASE 139 U/L (30-120); ALT (SGPT) 41 U/L (10-68); BILIRUBIN - TOTAL 0.12 mg/dL (0.2-1.3); CALCIUM 8.1 mg/dL (8.5-10.1); CARBON DIOXIDE 25.3 mmol/L (21.0-32.0); CHLORIDE - SERUM 103 mmol/L (98-107); CREATINE KINASE 49 UL (21-232); POTASSIUM - SERUM 3.5 mmol/L (3.5-5.1); PROTEIN - SERUM 6.9 g/dL (6.4-8.2)
--- NOTE | 2020-07-20 00:10 | NUR ---
PT HAS IVF INFUSING VIA PUMP. PT GIVEN ICE CHIPS PER REQUEST. PT HAS NO S/S OF DISTRESS NOTED. CALL LIGHT WITHIN REACH.
--- NOTE | 2020-07-20 01:11 | NUR ---
ATTEMPTED TO CALL REPORT PER FLOOR NURSE THEY WILL RETIRN CALL.
[2020-07-20 02:02] VITALS: BP 113/68; Ht 167.6 cm; Wt 65.9 kg
[2020-07-20 04:00] VITALS: BP 112/58
[2020-07-20 06:50] LABS: BASOPHILS 0.4 % (0-2); EOSINOPHILS 3.8 % (0-7); HEMATOCRIT 36.5 % (42.0-54.0); HEMOGLOBIN 11.9 g/dL (13.5-17.5); IMMATURE GRANULOCYTES 0.4 % (0-5); LYMPHOCYTES 37.8 % (15-50); MCH 28.5 pg (26.0-34.0); MCHC 32.6 g/dL (31.0-37.0); MCV 87.5 fL (80.0-100.0); MEAN PLATELET VOLUME 9.4 fL (7.4-10.4); MONOCYTES 11.1 % (2-11); NEUTROPHILS 46.5 % (40-80); PLATELET COUNT 270 10x3/uL (130-400); RBC 4.17 10x6/uL (4.20-6.10); RDW 13.9 % (11.5-14.5)
[2020-07-20 07:12] LABS: APTT 33.1 SECONDS (22.8-39.4); CALC OSMOLALITY 278 mosm/kg (275-300); CALCIUM 8.3 mg/dL (8.5-10.1); CARBON DIOXIDE 28.7 mmol/L (21.0-32.0); CHLORIDE - SERUM 106 mmol/L (98-107); CKMB 0.9 U/L (0.0-3.6); CREATINE KINASE 40 UL (21-232); CREATININE - SERUM 0.9 mg/dL (0.6-1.3); GLUCOSE 102 mg/dL (74-106); INR 0.95 (0.85-1.17); MAGNESIUM - SERUM 2.1 mg/dL (1.8-2.4); PHOSPHOROUS 4.2 mg/dL (2.5-4.9); POTASSIUM - SERUM 4.4 mmol/L (3.5-5.1); PRO BNP 197 pg/mL (0-125); PROTIME 12.6 SECONDS (11.6-15.0); SODIUM 139 mmol/L (136-145); TROPONIN-I < 0.017 ng/mL (0.000-0.060); UREA NITROGEN 16 mg/dL (7-18); eGFR NON AFRICAN AMERICAN > 90 mL/min (90-120)
[2020-07-20 10:01] VITALS: BP 102/62
[2020-07-20 11:46] LABS: CKMB 0.9 U/L (0.0-3.6); CREATINE KINASE 34 UL (21-232); TROPONIN-I < 0.017 ng/mL (0.000-0.060)
[2020-07-20 13:38] VITALS: BP 112/56
--- NOTE | 2020-07-20 13:44 | NUR ---
PT DISCHARGED HOME VIA AMBULATORY WITH FAMILY. PT REFUSED A WHEELCHAIR AND WALKED OUT ON HIS OWN. PT SIGNED PROPER DISCHARGE INSTRUCTIONS AND REMOVED ALL VALUABLES FROM THE ROOM. TELEMETRY REMOVED AND RETURNED. PIV REMOVED WITH CATHETER TIP FULLY INTACT.
--- NOTE | 2020-07-23 08:20 | CN ---
PATIENT NAME:ANDREW SANCHES MEDICAL RECORD: [id number] : 60 LOCATION:D.M2 D.2118 ADMIT DATE: 07/19/20 ACCOUNT: [id number] CONSULTING PHYSICIAN: STELLA RUBALCAVA MD REFERRING PHYSICIAN: PAIGE STEEN MD DATE OF CONSULTATION: 07/20/2020 HISTORY OF PRESENT ILLNESS: A 59-year-old gentleman with history of coronary artery disease and AVR, status post aortic valve replacement approximately 2 weeks ago. Preop angiography showed patent coronaries at that time. He has scapular shoulder pain, somewhat atypical, this resolved. Cardiac enzymes are negative. EKG is without acute change. We are asked to see him concerning his cardiovascular status. PAST MEDICAL HISTORY: Includes; 1. History of hypertension. 2. Aortic valve disease as described above. 3. Coronary artery disease. 4. Dyslipidemia. ALLERGIES: None known. MEDICATIONS: Include terbinafine 250 mg p.o. every day, Percocet 5/325 one p.o. every 6 hours p.r.n., aspirin 81 every day, previously on Plavix, but negative for this agent. SOCIAL HISTORY: Quit smoking at the time of surgery. Nondrinker. No illicit drug use. Has been attempting to walk, is planning on doing cardiac rehabilitation. REVIEW OF SYSTEMS: The patient reports easy bruising but reports no swollen glands. The patient reports no fever, no night sweats, no significant weight gain, no significant weight loss. No significant exercise tolerance. The patient reports no dry eyes, no irritation, no vision change. Patient reports no difficulty hearing and no ear pain. Patient reports no frequent nose bleeds or nose and sinus problems. Patient reports on arm pain on exertion. No shortness of breath while lying down. No history of heart murmur. Patient reports no cough, no wheezing or coughing up blood. Patient reports no abdominal pain, no vomiting. Normal appetite. No diarrhea and not vomiting blood. No nausea and no constipation. Patient reports no incontinence. No difficulty urinating. No hematuria. No increased frequency. Patient reports no muscle aches. No weakness, no arthralgias, no back pain. No swelling of the extremities. Patient reports no abnormal mole, no jaundice, no rashes. Reports no loss of consciousness. No weakness and no numbness. No seizures, dizziness, or headaches. The patient reports no depression, no sleep disturbance, feeling safe in a relationship and no alcohol abuse. Patient reports on fatigue. Reports no runny nose or sinus pressure. No itching, no hives, and no frequent sneezing. PHYSICAL EXAMINATION: GENERAL: Pleasant, no acute distress, appears stated age. VITAL SIGNS: Blood pressure 112/58, pulse 51 and regular. HEENT: Normocephalic, atraumatic. NECK: No bruits noted. HEART: Regular, I/ systolic ejection murmur. I do not hear a rub. CONSULT REPORT [id number] ANDREW SANCHES LUNGS: Good air excursion. ABDOMEN: Soft, nontender. EXTREMITIES: Pulses 2+. No edema. IMPRESSION AND PLAN: Postoperative chest pain, not classic for postpericardiotomy syndrome and no ECG changes suspicious for pericarditis. Coronaries were normal prior to valve intervention. We will check echocardiographic studies to make sure no evidence of pericardial effusion. No contraindication to discharge from my standpoint. TRANSINT:[id number] Voice Confirmation ID: [id number] DOCUMENT ID: [id number] STELLA RUBALCAVA MD at 0820 CC: [id number] DICTATION DATE: 07/20/20 09 CAR CLERK PULLMAN: 07/20/20 1357 DIS IN 07/20/20 [id number] [place] [address]
== END 2020-07-20 13:46 | disposition home or self-care (01) ==
LOC: D.ER 21:51 → OBSVTIME 23:59 → D.M2 23:59
PROVIDERS: Family Medicine; ADMIT Emergency Medicine; ATTEND Emergency Medicine
DX: R07.9 Chest pain, unspecified (principal); I25.10 Atherosclerotic heart disease of native coronary artery without angina pectoris; M19.90 Unspecified osteoarthritis, unspecified site; D64.9 Anemia, unspecified; Z95.2 Presence of prosthetic heart valve

== ENCOUNTER → 2020-08-07 13:59 | Outpatient (CLI) | payer OTHER ==
[2020-07-20 02:02] VITALS: BMI 23.4
[2020-08-07 14:21] LABS: BASOPHILS 0.4 % (0-2); HEMATOCRIT 42.8 % (42.0-54.0); HEMOGLOBIN 14.1 g/dL (13.5-17.5); IMMATURE GRANULOCYTES 0.3 % (0-5); LYMPHOCYTES 25.4 % (15-50); MCH 28.7 pg (26.0-34.0); MCHC 32.9 g/dL (31.0-37.0); MEAN PLATELET VOLUME 10.2 fL (7.4-10.4); MONOCYTES 9.2 % (2-11); NEUTROPHILS 62.7 % (40-80); PLATELET COUNT 232 10x3/uL (130-400); RBC 4.92 10x6/uL (4.20-6.10); RDW 14.1 % (11.5-14.5); WBC 7.9 10x3/uL (4.8-10.8)
[2020-08-07 14:29] LABS: CALC OSMOLALITY 273 mosm/kg (275-300); CALCIUM 9.1 mg/dL (8.5-10.1); CARBON DIOXIDE 31.9 mmol/L (21.0-32.0); CHLORIDE - SERUM 103 mmol/L (98-107); CREATININE - SERUM 0.9 mg/dL (0.6-1.3); GLUCOSE 77 mg/dL (74-106); POTASSIUM - SERUM 4.4 mmol/L (3.5-5.1); SODIUM 138 mmol/L (136-145); UREA NITROGEN 10 mg/dL (7-18); eGFR NON AFRICAN AMERICAN > 90 mL/min (90-120)
== END | disposition home or self-care (01) ==
LOC: D.LAB 13:59
PROVIDERS: ATTEND Thoracic Surgery (Cardiothoracic Vascular Surgery)
DX: I35.0 Nonrheumatic aortic (valve) stenosis (principal)

== ENCOUNTER → 2021-04-01 09:37 | Outpatient (CLI) | payer OTHER ==
[2020-11-20 20:37] VITALS: BMI 24.2
[~2021-04-01 09:37] MED LIST changes: +DICLOFENAC SODI50 MG PO
== END | disposition home or self-care (01) ==
LOC: D.US 09:30
PROVIDERS: ATTEND Internal Medicine Cardiovascular Disease
DX: K43.9 Ventral hernia without obstruction or gangrene (principal)